=== PATIENT | female | born 1935 | race Caucasian/White ===

== ENCOUNTER → 2016-09-08 | Outpatient (CLI) | payer BC ==
[~2016-09-08] MED LIST: ACET-1487 PO; CALC-496 PO; CALC500C70 PO; CHLO12TA2; CLC100X PO; CLR10 PO; CYAN10004 PO; DILT180C PO; FLUT0.15 NAE; FSM70 PO; HYPO0.01 OPB; LEVO125T4 PO; MOUTLIQ83 PO; OXYB5TAB74 PO; SIMV-150 PO; WARF2TAB8 PO; WARF4TAB8 PO
[2016-09-08 16:17] LABS: BASO % 0.3 %; BASO ABS # 0.02 K/uL (0-0.2); COMPLETE YES; EOS % 1.5 %; HEMATOCRIT 42.2 % (37-47); IG% 0.2 %; LYMPH % 30.4 %; LYMPH ABS # 1.82 K/uL (1.2-3.4); MEAN CORPUSCULAR HEMOGLOBIN 30.8 pg (25-34); MEAN CORPUSCULAR HGB CONC 33.2 g/dl (32-36); MEAN PLATELET VOLUME 9.9 fL (7.4-10.4); MONO % 7.2 %; NEUT % 60.4 %; PLATELET COUNT 189 K/uL (130-400); RED BLOOD COUNT 4.54 M/uL (4.2-5.4); WHITE BLOOD COUNT 5.99 K/uL (4.8-10.8)
[2016-09-08 16:37] LABS: ALT/SGPT 13 U/L (12-78); BLOOD UREA NITROGEN 17 mg/dl (7-18); BUN/CREATININE RATIO 26.2 (10-20); CALCIUM 9.1 mg/dl (8.5-10.1); CARBON DIOXIDE 30 mmol/L (21-32); CHLORIDE 103 mmol/L (98-107); CHOLESTEROL 145 mg/dl (0-200); CREATININE 0.65 mg/dl (0.60-1.20); GLUCOSE 84 mg/dl (70-99); MAGNESIUM 2.1 mg/dl (1.8-2.4); POTASSIUM 3.8 mmol/L (3.5-5.1); SODIUM 142 mmol/L (136-145); TRIGLYCERIDES 108 mg/dl (0-150); VERY LOW DENSITY LIPOPROT CALC 22 mg/dl
[2016-09-08 16:47] LABS: ALB/GLOB RATIO 1.5 (0.9-2); ALKALINE PHOSPHATASE 61 U/L (45-117); AST/SGOT 11 U/L (15-37); CHOLESTEROL/HDL RATIO 2.8; HDL CHOLESTEROL 52 mg/dl; LDL CHOLESTEROL CALCULATED 71 mg/dl
== END | disposition home or self-care (01) ==
LOC: C.LAB 15:46
PROVIDERS: ATTEND Internal Medicine Geriatric Medicine
DX: I67.2 Cerebral atherosclerosis (principal); Z79.01 Long term (current) use of anticoagulants; G43.909 Migraine, unspecified, not intractable, without status migrainosus; I10 Essential (primary) hypertension; E83.42 Hypomagnesemia; E03.9 Hypothyroidism, unspecified; R41.3 Other amnesia; M81.0 Age-related osteoporosis without current pathological fracture; I48.0 Paroxysmal atrial fibrillation

== ENCOUNTER → 2017-03-21 | Outpatient (CLI) | payer BC ==
[~2017-03-21] MED LIST changes: -CALC-496 PO; -CHLO12TA2; -HYPO0.01 OPB
[2017-03-21 12:26] LABS: ESTIMATED AVERAGE GLUCOSE 103 mg/dl; HA1C FLAG Normal (Normal)
[2017-03-21 12:30] LABS: BLOOD UREA NITROGEN 16 mg/dl (7-18); BUN/CREATININE RATIO 23.5 (10-20); CARBON DIOXIDE 31 mmol/L (21-32); CHLORIDE 106 mmol/L (98-107); CREATININE 0.69 mg/dl (0.60-1.20); GLUCOSE 93 mg/dl (70-99); POTASSIUM 3.4 mmol/L (3.5-5.1); SODIUM 142 mmol/L (136-145)
[2017-03-21 15:43] LABS: URINE APPEARANCE CLOUDY (CLEAR); URINE BILIRUBIN NEG (NEG); URINE COLOR YELLOW; URINE NITRITE NEG (NEG); URINE SPECIFIC GRAVITY 1.015 (1.000-1.030); UROBILINOGEN NEG (NEG); ZZUR CULT IF INDIC CLEAN CATCH YES
[2017-03-21 15:47] LABS: MANUAL MICROSCOPIC REQUIRED? NO; REVIEW REQ? NO
--- NOTE | 2017-03-25 12:38 | CODING QUERY MEDICAL NECESSITY ---
CQSUPPORTING DIAGNOSIS NEEDED A supporting diagnosis is required for the test/procedure performed on this patient in order for us to be reimbursed by the patient's insurance. Please provide a supporting diagnosis for the following test/procedure listed below next to the test name along with your signature. *If there is no additional diagnosis for this patient that would support the following test/procedure please document that below next to the test/procedure. Test(s)/Procedure(s) that require a supporting diagnosis: SHEA 03/21/17 GLYCATED HEMOGLOBIN TEST Provider Signature: Date: Thank you Bee Diaz Health Information Management Once completed, please kindly fax back to [phone] For questions please call [phone]
== END | disposition home or self-care (01) ==
LOC: C.LAB 10:31
PROVIDERS: ATTEND Internal Medicine Geriatric Medicine
DX: G43.909 Migraine, unspecified, not intractable, without status migrainosus (principal); I10 Essential (primary) hypertension; R35.8 Other polyuria

== ENCOUNTER 2018-02-24 19:57 | Inpatient (IN) | payer BC, OTHER ==
[~2018-02-24] VITALS: Ht 162.6 cm; Wt 65.6 kg
[~2018-02-24 19:57] MED LIST changes: +CHOL1000 PO; -CLR10 PO; -FLUT0.15 NAE; +GABA-112 PO; -LEVO125T4 PO; -OXYB5TAB74 PO
[2018-02-24] MEDS ORDERED: LEVO125T5 PO (20:12)
[2018-02-24] MEDS ORDERED: METOCLOPRAMIDE HCL INJ 5 MG/ML 2 ML VIAL IV STA (20:23)
[2018-02-24] MEDS ORDERED: ACETAMINOPHEN 500 MG TAB PO STA (20:23)
[2018-02-24] MEDS ORDERED: SOAP SUDS ENEMA PR STA ×2 (20:23→23:25)
--- NOTE | 2018-02-24 20:25 | EMERGENCY ROOM VISIT NOTE ---
History Report prepared by Davina: Matthew Rosenbaum Under the Supervision of: Dr. Arturo Russo M.D. First contact with patient: 20:10 Chief Complaint: CONSTIPATION Stated Complaint: CONSTIPATION,NAUSEA,ABD PAIN AND CRAMPING History of Present Illness The patient is an 82 year old female who presents to the Emergency Room with complaints of persistent constipation that she has been experiencing for the past 2 days. The patient's daughter at bedside notes that she has not had a normal bowel movement in over two days. He notes that the did administer a "stool softener" earlier today which did loosen up some stool, but she still cannot pass a mass of stool. She is complaining of nausea as well. Source of History: patient Onset: 2 days ago Position: abdomen (cramping), other (rectal ) Quality: other (constipation) Timing: other (persistent) Associated Symptoms: + nausea, + abdominal pain Review of Systems See HPI for pertinent positives & negatives. A total of 10 systems reviewed and were otherwise negative. Past Medical & Surgical Medical Problems: (1) Fecal impaction (2) HYPERTENSION NOS (3) Replacement of total knee joint (4) Urinary incontinence Family History Omitted due to advanced age Social History Smoking Status: Former Smoker Marital Status: Housing Status: lives with family Occupation Status: retired Current/Historical Medications Scheduled Alendronate Sodium (Alendronate Sodium), 70 MG PO MONTHLY Calcium/Vitamin D (Os-Wilfredo 500 Plus D), 1 TAB PO DAILY Cholecalciferol (Vitamin D3), 1,000 INTER.UNIT PO DAILY Cyanocobalamin (Vitamin B-12 1000 Mcg), 1,000 MCG PO DAILY Diltiazem Hcl Coated Beads (Diltiazem Hcl Er), 180 MG PO DAILY Levothyroxine Sodium (Levothyroxine Sodium), 125 MCG PO DAILY Simvastatin (Simvastatin), 10 MG PO QAM Warfarin Sod (Jantoven), 2 MG PO 3XWK Warfarin Sod (Jantoven), 4 MG PO 4XWK Scheduled PRN Acetaminophen (Tylenol Arthritis Ext Rel), 650 MG PO Q8 PRN for Pain Docusate Sodium (Docusate Sodium), 100 MG PO DAILY PRN for Constipation Gabapentin (Neurontin), 100 MG PO DAILY PRN for Pain Allergies Coded Allergies: No Known Allergies (Unverified , 02/24/18) Physical Exam Vital Signs Date Time Temp Pulse Resp B/P (MAP) Pulse Ox O2 Delivery O2 Flow Rate FiO2 02/24/18 21:46 Room Air 02/24/18 21:46 101 24 226/140 98 Room Air 02/24/18 20:03 36.7 68 20 151/81 97 Room Air Physical Exam GENERAL: Awake, alert, well-appearing, in no acute distress HENT: Normocephalic, atraumatic. Oropharynx unremarkable. EYES: Normal conjunctiva. Sclera non-icteric. NECK: Supple. No nuchal rigidity. FROM. No JVD. RESPIRATORY: Clear to auscultation. CARDIAC: Regular rate, normal rhythm. Extremities warm and well perfused. Pulses equal. ABDOMEN: Soft, non-distended. No tenderness to palpation. No rebound or guarding. No masses. RECTAL: Deferred. MUSCULOSKELETAL: Chest examination reveals no tenderness. The back is symmetrical on inspection without obvious abnormality. There is no CVA tenderness to palpation. No joint edema. LOWER EXTREMITIES: Calves are equal size bilaterally and non-tender. No edema. No discoloration. NEURO: Normal sensorium. No sensory or motor deficits noted. SKIN: No rash or jaundice noted. RECTAL: There is a large amount of stool that was disimpacted by me. No blood. No masses palpated. Medical Decision & Procedures ER Provider Diagnostic Interpretation: Radiology results as stated below per my review and radiologist interpretation: CT ABDOMEN & PELVIS With Contrast: Fecal impaction in the rectum with perirectal fat stranding indication constipation. Areas of mild colonic wall thickening indicating mild colitis No small bowel obstruction Scattered small indeterminate cystic lesions in the liver. Radiologist: Gomez Aldana MD CT L SPINE: There is moderate loss of height at the L2 vertebral body without evidence for acute injury. Multilevel discogenic disease is noted. No acute fracture. CT HEAD: No acute fracture or hemorrhage Radiologist: Gomez Aldana MD Laboratory Results 02/24/18 20:17 Red Blood Count 4.93, Mean Corpuscular Volume 92.3, Mean Corpuscular Hemoglobin 31.2, Mean Corpuscular Hemoglobin Concent 33.8, Mean Platelet Volume 10.0, Neutrophils (%) (Auto) 85.4, Lymphocytes (%) (Auto) 8.8, Monocytes (%) (Auto) 5.4, Eosinophils (%) (Auto) 0.1, Basophils (%) (Auto) 0.1, Neutrophils # (Auto) 8.70, Lymphocytes # (Auto) 0.90, Monocytes # (Auto) 0.55, Eosinophils # (Auto) 0.01, Basophils # (Auto) 0.01 Test 02/24/18 20:17 White Blood Count 10.19 K/uL (4.8-10.8) Red Blood Count 4.93 M/uL (4.2-5.4) Hemoglobin 15.4 g/dL (12.0-16.0) Hematocrit 45.5 % (37-47) Mean Corpuscular Volume 92.3 fL (80-100) Mean Corpuscular Hemoglobin 31.2 pg (25-34) Mean Corpuscular Hemoglobin Concent 33.8 g/dl (32-36) Platelet Count 215 K/uL (130-400) Mean Platelet Volume 10.0 fL (7.4-10.4) Neutrophils (%) (Auto) 85.4 % Lymphocytes (%) (Auto) 8.8 % Monocytes (%) (Auto) 5.4 % Eosinophils (%) (Auto) 0.1 % Basophils (%) (Auto) 0.1 % Neutrophils # (Auto) 8.70 K/uL (1.4-6.5) Lymphocytes # (Auto) 0.90 K/uL (1.2-3.4) Monocytes # (Auto) 0.55 K/uL (0.11-0.59) Eosinophils # (Auto) 0.01 K/uL (0-0.5) Basophils # (Auto) 0.01 K/uL (0-0.2) RDW Standard Deviation 44.4 fL (36.4-46.3) RDW Coefficient of Variation 13.2 % (11.5-14.5) Immature Granulocyte % (Auto) 0.2 % Immature Granulocyte # (Auto) 0.02 K/uL (0.00-0.02) Total Bilirubin 0.6 mg/dl (0.2-1) Direct Bilirubin 0.2 mg/dl (0-0.2) Aspartate Amino Transf (AST/SGOT) 18 U/L (15-37) Alanine Aminotransferase (ALT/SGPT) 15 U/L (12-78) Alkaline Phosphatase 85 U/L (45-117) Total Creatine Kinase 111 U/L (26-192) Creatine Kinase MB 1.3 ng/ml (0.5-3.6) Creatine Kinase MB Ratio 1.2 (0-3.0) Troponin I < 0.015 ng/ml (0-0.045) Total Protein 7.5 gm/dl (6.4-8.2) Albumin 4.0 gm/dl (3.4-5.0) Thyroid Stimulating Hormone (TSH) 2.860 uIu/ml (0.300-4.500) Labs reviewed by ED physician. Medications Administered Medications (Trade) Dose Ordered Sig/Elise Route Start Time Stop Time Status Last Admin Dose Admin Miscellaneous (Soap Suds Enema) 1 ea NOW STAT AK 02/24/18 20:23 02/24/18 20:27 DC 02/24/18 20:23 1 EA Metoclopramide HCl (Reglan Inj) 10 mg NOW STAT IV 02/24/18 20:23 02/24/18 20:27 DC 02/24/18 20:49 10 MG Acetaminophen (Tylenol Tab) 1,000 mg NOW STAT PO 02/24/18 20:23 02/24/18 20:27 DC 02/24/18 20:51 1,000 MG Lidocaine (Lidoderm Patch 5%) 1 patch NOW STAT TD 02/24/18 20:38 02/24/18 20:39 DC 02/24/18 21:11 1 PATCH Potassium Chloride (Klor-Con Tab) 40 meq NOW STAT PO 02/24/18 21:46 02/24/18 21:47 DC 02/24/18 21:46 40 MEQ Potassium Chloride (Klor-Con Tab) 20 meq NOW STAT PO 02/24/18 23:22 02/24/18 23:23 DC 02/25/18 00:46 20 MEQ Morphine Sulfate (MoRPHine SULFATE INJ) 4 mg NOW STAT IV 02/24/18 23:34 02/24/18 23:35 DC 02/24/18 23:44 4 MG Ondansetron HCl (Zofran Inj) 4 mg NOW STAT IV 02/24/18 23:34 02/24/18 23:36 DC 02/24/18 23:44 4 MG Magnesium Citrate (Citrate Of Magnesia Soln) 148 ml NOW STAT PO 02/24/18 23:34 02/24/18 23:36 DC 02/25/18 00:45 148 ML Gabapentin (Neurontin Cap) 100 mg DAILY PRN PO 02/25/18 00:45 8 00:44 02/25/18 08:29 100 MG Lactated Ringer's 1,000 ml @ 80 mls/hr [id number] IV 02/25/18 00:45 02/26/18 01:44 02/25/18 13:24 80 MLS/HR Procedure DISIMPACTION There is a large amount of stool that was disimpacted by me. No blood. No masses palpated. ECG Per My Interpretation Indication: nausea Rate (beats per minute): 77 Rhythm: normal sinus Findings: RBBB, other (No BILLY/STD) ED Course 2012: Past medical records reviewed. The patient was evaluated in room C5. A complete history and physical examination was performed. 2100: I checked on the patient at this time. She is on the bedside commode. 2346: I discussed with [facility]ushil [facility]. She will evaluate the patient for further treatment. Medical Decision Differential diagnosis: Etiologies such as functional constipation, impaction, obstruction, volvulus, metabolic abnormality, infection, neurologic, as well as others were entertained. This is an 82-year-old female who presents the emergency department complaining of constipation. The patient was disimpacted by me twice. The patient was then given enemas here in the due to the vomiting and abdominal pain patient was sent for CAT scan of the abdomen and pelvis which showed a large stool impaction she was then again disimpacted by me. She was given Reglan as well as morphine for the pain. She was given magnesium Citrate that was discussed with the hospitalist service. Medication Reconcilliation Current Medication List: was personally reviewed by me Blood Pressure Screening Patient's blood pressure: Elevated blood pressure Referred to hospitalist. Consults Time Called: 2343 Consulting Physician: Dr. Sushil [facility]. Returned Call: [address] Sushil Swift. She will evaluate the patient for further treatment. Impression Primary Impression: Constipation Scribe Attestation The scribe's documentation has been prepared under my direction and personally reviewed by me in its entirety. I confirm that the note above accurately reflects all work, treatment, procedures, and medical decision making performed by me. Departure Information Dispostion Being Evaluated By Hospitalist Referrals Myron Martínez M.D. (PCP) Patient Instructions My [facility] Problem Qualifiers Primary Impression: Constipation Constipation type: unspecified constipation type Qualified Codes: K59.00 - Constipation, unspecified
[2018-02-24] MEDS ORDERED: LIDODERM (LIDOCAINE) PATCH 5% TD STA (20:38)
[2018-02-24 20:58] LABS: BASO % 0.1 %; BASO ABS # 0.01 K/uL (0-0.2); EOS % 0.1 %; EOS ABS # 0.01 K/uL (0-0.5); HEMATOCRIT 45.5 % (37-47); HEMOGLOBIN 15.4 g/dL (12.0-16.0); IG# 0.02 K/uL (0.00-0.02); LYMPH % 8.8 %; MEAN CELL VOLUME 92.3 fL (80-100); MEAN CORPUSCULAR HEMOGLOBIN 31.2 pg (25-34); MEAN CORPUSCULAR HGB CONC 33.8 g/dl (32-36); MONO % 5.4 %; MONO ABS # 0.55 K/uL (0.11-0.59); NEUT % 85.4 %; PLATELET COUNT 215 K/uL (130-400); RED CELL DISTRIBUTION WIDTH CV 13.2 % (11.5-14.5); RED CELL DISTRIBUTION WIDTH SD 44.4 fL (36.4-46.3); WHITE BLOOD COUNT 10.19 K/uL (4.8-10.8)
[2018-02-24] MEDS ORDERED: DOCU100C31 PO (21:10)
[2018-02-24 21:34] LABS: ALKALINE PHOSPHATASE 85 U/L (45-117); ALT/SGPT 15 U/L (12-78); AST/SGOT 18 U/L (15-37); BLOOD UREA NITROGEN 13 mg/dl (7-18); CALCIUM 8.5 mg/dl (8.5-10.1); CARBON DIOXIDE 27 mmol/L (21-32); CKMB 1.3 ng/ml (0.5-3.6); CREATININE 0.58 mg/dl (0.60-1.20); GLUCOSE 127 mg/dl (70-99); POTASSIUM 2.8 mmol/L (3.5-5.1); SODIUM 136 mmol/L (136-145); TOTAL PROTEIN 7.5 gm/dl (6.4-8.2)
[2018-02-24] MEDS ORDERED: POTASSIUM CHLORIDE 20 MEQ TABCR PO STA ×3 (21:46→23:22)
[2018-02-24] MEDS ORDERED: OPTIRAY 320 IV PRN (22:00)
[2018-02-24] MEDS ORDERED: POTASSIUM CHLORIDE 10 MEQ TABCR ONE ×2 (22:16→22:22)
[2018-02-24] MEDS ORDERED: MoRPHine SULFATE 4 MG/ML 1 ML CARP\\VIAL IV STA (23:34)
[2018-02-24] MEDS ORDERED: ONDANSETRON INJ 2 MG/ML 2 ML VIAL IV STA (23:34)
[2018-02-24] MEDS ORDERED: MAGNESIUM CITRATE 296 ML/BTL PO STA (23:34)
[2018-02-25] MEDS ORDERED: POTASSIUM CHLORIDE 10 MEQ TABCR ONE (00:44)
[2018-02-25] MEDS ORDERED: BISACODYL 10 MG SUPP PR PRN (00:45)
[2018-02-25] MEDS ORDERED: POLYETHYLENE (MIRALAX) 17 GM PACK PO PRN (00:45)
[2018-02-25] MEDS ORDERED: MAGNESIUM CITRATE 296 ML/BTL PO PRN (00:45)
--- NOTE | 2018-02-25 01:04 | History and Physical ---
History & Physical Date & Time of Service: Feb 25, 2018 at 00:49 Chief Complaint: Constipation,Nausea,Abd Pain And Cramping Primary Care Physician: Myron Martínez M.D. History of Present Illness Source: patient, family Mrs. Harris is an 82yo female presenting with at least 2 days of constipation, no BM as well as progressive abdominal pain and cramping, nausea and decreased po intake. Daughter also reports she is mildly confused. CT abdomen performed from the ER which confirmed fecal impaction s/p manual disimpaction x 2 by ER physician. Patient still complaining of abdominal pain and cramping. ER Course: Morphine 4mg, Zofran 4mg, Magnesium Citrate, Soap suds enema, KCL 60meq, Lidocaine TD, Reglan, Tylenol Past Medical/Surgical History Medical Problems: Atrial fibrillation Constipation Hypertension Hypothyroidism Chronic rhinitis Past Surgical History: TKA x 2 Cataract x 2 Right arm fracture Tonsillectomy Appendectomy Family History Omitted due to advanced age Social History Smoking Status: Former Smoker Smokeless Tobacco Use: No Alcohol Use: none Drug Use: none Marital Status: Housing status: lives with family Occupational Status: retired Immunizations History of Influenza Vaccine: Yes History of Tetanus Vaccine?: Yes History of Pneumococcal: Yes History of Hepatitis B Vaccine: No Allergies Coded Allergies: No Known Allergies (Unverified , 02/24/18) Home Medications Scheduled Alendronate Sodium (Alendronate Sodium), 70 MG PO MONTHLY Calcium/Vitamin D (Os-Wilfredo 500 Plus D), 1 TAB PO DAILY Cholecalciferol (Vitamin D3), 1,000 INTER.UNIT PO DAILY Cyanocobalamin (Vitamin B-12 1000 Mcg), 1,000 MCG PO DAILY Diltiazem Hcl Coated Beads (Diltiazem Hcl Er), 180 MG PO DAILY Levothyroxine Sodium (Levothyroxine Sodium), 125 MCG PO DAILY Simvastatin (Simvastatin), 10 MG PO QAM Warfarin Sod (Jantoven), 2 MG PO 3XWK Warfarin Sod (Jantoven), 4 MG PO 4XWK Scheduled PRN Acetaminophen (Tylenol Arthritis Ext Rel), 650 MG PO Q8 PRN for Pain Docusate Sodium (Docusate Sodium), 100 MG PO DAILY PRN for Constipation Gabapentin (Neurontin), 100 MG PO DAILY PRN for Pain Review of Systems Constitutional: No fever, No chills Eyes: No worsening of vision ENT: No hearing loss Respiratory: No cough Cardiovascular: No chest pain Abdomen: + pain, + nausea, + constipation, No vomiting, No diarrhea Musculoskeletal: No joint pain Genitourinary - Female: No dysuria, No urinary frequency Neurologic: No weakness Endocrine: No fatigue Hematologic / Lymphatic: No abnormal bleeding/bruising Integumentary: No rash Physical Exam Vital Signs Date Time Temp Pulse Resp B/P (MAP) Pulse Ox O2 Delivery O2 Flow Rate FiO2 02/24/18 21:46 Room Air 02/24/18 21:46 101 24 226/140 98 Room Air 02/24/18 20:03 36.7 68 20 151/81 97 Room Air General: patient resting comfortably in bed, hard of hearing Skin: warm, dry, intact, no rashes or lesions HEENT: NC/AT, PERRL, EOMI, anicteric sclera, conjunctiva without injection, nares patent, moist mucus membranes, no oropharyngeal lesions, neck supple, trachea midline, no thyromegaly, no LAD Heart: +S1/S2, irregularly irregular, no m/r/g Lungs: equal air entry bilaterally, no rales/rhonchi/wheezes Abdomen: soft, NT/ND, no organomegaly/ascites, fullness in left lower abdomen, mildly tender to palpation without rebound/guarding or peritoneal signs Extremities: warm, well perfused, no clubbing/cyanosis or edema, 2+ palpable pulses in UE/LE bilaterally Neuro: grossly intact Diagnostics Laboratory Results Results Past 24 Hours Test 02/24/18 20:17 02/25/18 00:40 Range/Units White Blood Count 10.19 4.8-10.8 K/uL Red Blood Count 4.93 4.2-5.4 M/uL Hemoglobin 15.4 12.0-16.0 g/dL Hematocrit 45.5 37-47 % Mean Corpuscular Volume 92.3 80-100 fL Mean Corpuscular Hemoglobin 31.2 25-34 pg Mean Corpuscular Hemoglobin Concent 33.8 32-36 g/dl Platelet Count 215 130-400 K/uL Mean Platelet Volume 10.0 7.4-10.4 fL Neutrophils (%) (Auto) 85.4 % Lymphocytes (%) (Auto) 8.8 % Monocytes (%) (Auto) 5.4 % Eosinophils (%) (Auto) 0.1 % Basophils (%) (Auto) 0.1 % Neutrophils # (Auto) 8.70 1.4-6.5 K/uL Lymphocytes # (Auto) 0.90 1.2-3.4 K/uL Monocytes # (Auto) 0.55 0.11-0.59 K/uL Eosinophils # (Auto) 0.01 0-0.5 K/uL Basophils # (Auto) 0.01 0-0.2 K/uL RDW Standard Deviation 44.4 36.4-46.3 fL RDW Coefficient of Variation 13.2 11.5-14.5 % Immature Granulocyte % (Auto) 0.2 % Immature Granulocyte # (Auto) 0.02 0.00-0.02 K/uL Sodium Level 136 136-145 mmol/L Potassium Level 2.8 3.5-5.1 mmol/L Chloride Level 99 98-107 mmol/L Carbon Dioxide Level 27 21-32 mmol/L Anion Gap 10.0 3-11 mmol/L Blood Urea Nitrogen 13 7-18 mg/dl Creatinine 0.58 0.60-1.20 mg/dl Est Creatinine Clear Calc Drug Dose 62.4 ml/min Estimated GFR () 98.1 Estimated GFR (Non- 84.6 BUN/Creatinine Ratio 22.9 10-20 Random Glucose 127 70-99 mg/dl Calcium Level 8.5 8.5-10.1 mg/dl Total Bilirubin 0.6 0.2-1 mg/dl Direct Bilirubin 0.2 0-0.2 mg/dl Aspartate Amino Transf (AST/SGOT) 18 15-37 U/L Alanine Aminotransferase (ALT/SGPT) 15 12-78 U/L Alkaline Phosphatase 85 45-117 U/L Total Creatine Kinase 111 26-192 U/L Creatine Kinase MB 1.3 0.5-3.6 ng/ml Creatine Kinase MB Ratio 1.2 0-3.0 Troponin I < 0.015 0-0.045 ng/ml Total Protein 7.5 6.4-8.2 gm/dl Albumin 4.0 3.4-5.0 gm/dl Thyroid Stimulating Hormone (TSH) 2.860 0.300-4.500 uIu/ml Diagnostic Radiology CT ABDOMEN PERFORMED - NEGATIVE FOR ACUTE INTRACRANIAL PROCESS CT LUMBAR SPINE - NEGATIVE FOR ACUTE FRACTURE, + DJD CT ABDOMEN - +FECAL IMPACTION WITH STRANDING, MILD COLITIS EKG ORDERED Impression Assessment and Plan 82yo female with fecal impaction 1. Fecal impaction/Constipation - s/p manual disimpaction x 2 in ER with minimal improvement. -Colace 100mg po BID -Dulcolax 10mg IA daily -Magnesium Citrate 75mL po BID -Miralax daily PRN -Optimize electrolytes and fluid balance -LR at 80mL/hr x 2 liters -Frequent ambulation as tolerated 2. Hypertension - elevated BP while in ER -Continue to monitor -Diltiazem 180mg po daily 3. Hyperlipidemia - stable -Continue Simvastatin 4. Hypothyroidism - stable -Continue Synthroid 5. Atrial fibrillation - rate controlled. On Coumadin anticoagulatin -Continue to monitor -Continue Coumadin at home dosage -Monitor INR 6. F/E/N - LR at 80mL/hr x 2 liters, monitor electrolytes and replete as needed , K supplemented in ER, repeat BMP in AM, regular diet as tolerated 7. Ppx - Patient on Coumadin for atrial fibrillation, continue 8. Code -Full per discussion with patient 9. Dispo - Observation to medical floor for continued optimization Resuscitation Status Full VTE Prophylaxis Will order VTE Prophylaxis: Yes
[2018-02-25 01:15] LABS: PHOSPHORUS 2.9 mg/dl (2.5-4.9)
[2018-02-25 01:23] LABS: INR 3.6 (0.9-1.1)
[2018-02-25 02:30] VITALS: BP 128/72; PULSE 76; TEMP 36.6; O2SAT 93; BMI 24.3
[2018-02-25] MEDS: LACTATED RINGER'S 1000ML 1,000 ML IV SCH ×2 (03:12→13:24)
[2018-02-25] MEDS ORDERED: IV FLUIDS COMPLETED PRN (04:45)
[2018-02-25] MEDS: LEVOTHYROXINE 125 MCG TAB PO SCH (05:44)
[2018-02-25 06:40] LABS: INR 4.2 (0.9-1.1)
--- NOTE | 2018-02-25 06:40 | DIAGNOSTIC IMAGING REPORT ---
HEAD WITHOUT CONTRAST (CT) CLINICAL HISTORY: 82 years-old Female with Pt multiple falls. Acute head trauma status post fall TECHNIQUE: Multiple axial CT images of the head were obtained without contrast. A dose lowering technique was utilized adhering to the principles of ALARA. CT DOSE: 1125.52 mGy.cm COMPARISON: CT head 03/22/2014. FINDINGS: No acute intracranial hemorrhage, midline shift, intracranial mass, hydrocephalus, territorial ischemia or abnormal extra-axial collection. Age-related involutional changes. Moderate to extensive patchy low-attenuation throughout the white matter suggests chronic microvascular ischemic changes. The calvarium is intact. Mild polypoid mucosal thickening of the left maxillary sinus. Mild mucosal thickening of the ethmoid air cells. Mastoid air cells and middle ear cavities appear clear. Soft tissues and orbits are within normal limits. IMPRESSION: No acute intracranial abnormality. The above report was generated using voice recognition software. It may contain grammatical, syntax or spelling errors. Electronically signed by: Mariano Amado M.D. 02/25/2018 6:38 AM Dictated Date/Time: 02/25/2018 6:36 AM
--- NOTE | 2018-02-25 07:13 | DIAGNOSTIC IMAGING REPORT ---
LUMBAR SPINE CT CT DOSE: HISTORY: Pt c/o low back pain TECHNIQUE: Multiaxial CT images of the lumbar spine were performed and reformatted in the sagittal and coronal plane without the use of contrast. A dose lowering technique was utilized adhering to the principles of ALARA. COMPARISON: Lumbar spine CT 03/22/2014. Lumbar spine radiograph 12/20/2014. FINDINGS: Moderate compression fracture at L2. This is likely old. Moderate to severe disc space narrowing at L5-S1. Mild to moderate facet degenerative changes throughout the lumbar spine. Small focal indentation along the right superior endplate of L3. This also likely represents an old compression fracture. Abnormal lucency with a small amount of gas along the inferior endplate of T12. This is consistent with an acute compression fracture. This demonstrate minimal loss of height. Minimal levoscoliosis. The visualized sacrum appears intact. Mild paravertebral edema at the T12 level. Small cysts within the right hepatic lobe. Hypodense lesions within the kidneys are noted. This is better appreciated on the same day abdomen and pelvis CT. Moderate disc space narrowing at L2-L3 and mild disc space narrowing at L1-L2 and L4-L5. IMPRESSION: 1. Acute inferior endplate compression fracture at T12. This demonstrates minimal loss of height. This finding was called/faxed to the emergency Department following dictation. 2. Old compression deformities at L2 and L3. Electronically signed by: Rafael Cool M.D. 02/25/2018 7:12 AM Dictated Date/Time: 02/25/2018 7:05 AM
[2018-02-25 07:14] VITALS: BP 105/57; PULSE 62; TEMP 36.3; O2SAT 99
[2018-02-25 07:15] VITALS: BP 138/70; PULSE 72; TEMP 36.4; O2SAT 94
--- NOTE | 2018-02-25 07:22 | DIAGNOSTIC IMAGING REPORT ---
ABD/PELVIS IV AND ORAL CONT CT DOSE: HISTORY: Pain Pt c/o stool impaction, abd pain TECHNIQUE: Multiaxial CT images of the abdomen and pelvis were performed following the use of intravenous and oral contrast. A dose lowering technique was utilized adhering to the principles of ALARA. COMPARISON STUDY: None. FINDINGS: Lung bases are clear. Several small hepatic cysts. Gallbladder is negative for distention. Kidneys negative for hydronephrosis. Bowel pattern is considered nonobstructive. There is moderate fecal colonic low-dose of the colon. There is a fecal impaction within the rectosigmoid. IMPRESSION: 1. Fecal impaction. 2. Otherwise no acute process in the abdomen or pelvis. The above report was generated using voice recognition software. It may contain grammatical, syntax or spelling errors. Electronically signed by: Conner Ramirez M.D. 02/25/2018 7:21 AM Dictated Date/Time: 02/25/2018 7:12 AM
[2018-02-25] MEDS: CALCIUM 600MG + VIT D 400 IU TAB PO SCH (08:28)
[2018-02-25] MEDS: DILTIAZEM HCL 180 MG CAPCR PO SCH (08:28)
[2018-02-25] MEDS: GABAPENTIN 100 MG CAP PO PRN (08:29)
[2018-02-25] MEDS: CHOLECALCIFEROL 1000 INTER.UNIT TAB PO SCH (08:29)
[2018-02-25] MEDS: DOCUSATE SODIUM 100 MG CAP PO SCH ×2 (08:29→20:48)
[2018-02-25] MEDS: CYANOCOBALAMIN 500 MCG TAB (VIT B-12) PO SCH (08:29)
[2018-02-25] MEDS: SIMVASTATIN 10 MG TAB PO SCH (08:29)
[2018-02-25 09:40] LABS: CALCIUM 8.7 mg/dl (8.5-10.1); CREATININE 0.57 mg/dl (0.60-1.20); PHOSPHORUS 3.5 mg/dl (2.5-4.9); POTASSIUM 3.4 mmol/L (3.5-5.1)
--- NOTE | 2018-02-25 13:10 | Progress Note ---
Subjective Date of Service: Feb 25, 2018. Subjective Pt evaluation today including: conversation w/ patient, conversation w/ family , physical exam, chart review, lab review, review of studies, conversation w/ retail sales vitamin consultant, review of inpatient medication list Report tired, however was eating some food, no abdominal pain, has 2 time bowel movement was normal soft stool, denied back pain, Problem List Medical Problems: (1) Constipation Status: Acute Review of Systems Constitutional: + weakness, + fatigue, No fever, No chills, No sweats, No weight loss, No problem reported Eyes: No worsening of vision, No eye pain, No redness, No discharge, No diplopia ENT: No hearing loss, No unusual epistaxis, No nasal symptoms, No sore throat, No tinnitus, No dental problems, No trouble swallowing Respiratory: No cough, No sputum, No wheezing, No shortness of breath, No dyspnea on exertion, No dyspnea at rest, No hemoptysis Cardiac: No chest pain, No orthopnea, No PND, No edema, No claudication, No palpitations Abdomen: No pain, No nausea, No vomiting, No diarrhea, No constipation Musculoskeletal: No joint pain, No muscle pain, No swelling, No calf pain Female : No dysuria, No urinary frequency, No hematuria, No incontinence, No abnormal vaginal bleeding, No vaginal discharge Neurologic: No memory loss, No paralysis, No weakness, No numbness/tingling, No vertigo, No balance problems Psychiatric: No depression symptoms, No anhedonism, No anxiety, No insomnia, No substance abuse Heme: No abnormal bleeding/bruising, No clotting problems, No swollen lymph nodes, No night sweats Endo: No fatigue, No excessive thirst, No excessive urination Skin: No rash, No itch, No new/changing skin lesions, No color change, No bleeding Objective Vital Signs Date Time Temp Pulse Resp B/P (MAP) Pulse Ox O2 Delivery O2 Flow Rate FiO2 02/25/18 08:00 Room Air 02/25/18 07:15 36.4 72 16 138/70 (92) 94 Room Air 02/25/18 02:30 36.6 76 16 128/72 93 Room Air 02/25/18 01:42 78 18 160/90 98 Room Air 02/25/18 01:16 72 02/24/18 21:46 Room Air 02/24/18 21:46 101 24 226/140 98 Room Air 02/24/18 20:03 36.7 68 20 151/81 97 Room Air Physical Exam General Appearance: WD/WN, no apparent distress, + pertinent finding (Looks tired) Eyes: normal inspection, PERRL, EOMI, sclerae normal ENT: normal ENT inspection, hearing grossly normal, pharynx normal Neck: supple, no adenopathy, thyroid normal, no JVD, no carotid bruits, trachea midline Respiratory/Chest: chest non-tender, normal breath sounds, no respiratory distress, no accessory muscle use, + decreased breath sounds Cardiovascular: regular rate, rhythm, no edema, no gallop, no JVD, no murmur Abdomen: normal bowel sounds, non tender, soft, no organomegaly, no pulsatile mass Extremities: normal range of motion, non-tender, normal inspection, no pedal edema, no calf tenderness, normal capillary refill, pelvis stable, + pertinent finding (T-spine and L-spine local has no tender) Neurologic/Psychiatric: 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 literacy instructor II-XII 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 as tested, no motor/sensory deficits, alert, normal mood/affect, oriented x 3 Skin: normal color, warm/dry, no rash Lymphatic: no adenopathy Laboratory Results Last 24 Hours Test 02/24/18 20:17 02/24/18 20:47 02/25/18 05:35 02/25/18 05:42 White Blood Count 10.19 K/uL Red Blood Count 4.93 M/uL Hemoglobin 15.4 g/dL Hematocrit 45.5 % Mean Corpuscular Volume 92.3 fL Mean Corpuscular Hemoglobin 31.2 pg Mean Corpuscular Hemoglobin Concent 33.8 g/dl Platelet Count 215 K/uL Mean Platelet Volume 10.0 fL Neutrophils (%) (Auto) 85.4 % Lymphocytes (%) (Auto) 8.8 % Monocytes (%) (Auto) 5.4 % Eosinophils (%) (Auto) 0.1 % Basophils (%) (Auto) 0.1 % Neutrophils # (Auto) 8.70 K/uL Lymphocytes # (Auto) 0.90 K/uL Monocytes # (Auto) 0.55 K/uL Eosinophils # (Auto) 0.01 K/uL Basophils # (Auto) 0.01 K/uL RDW Standard Deviation 44.4 fL RDW Coefficient of Variation 13.2 % Immature Granulocyte % (Auto) 0.2 % Immature Granulocyte # (Auto) 0.02 K/uL Sodium Level 136 mmol/L 139 mmol/L Potassium Level 2.8 mmol/L 3.4 mmol/L Chloride Level 99 mmol/L 102 mmol/L Carbon Dioxide Level 27 mmol/L 31 mmol/L Anion Gap 10.0 mmol/L 6.0 mmol/L Blood Urea Nitrogen 13 mg/dl 14 mg/dl Creatinine 0.58 mg/dl 0.57 mg/dl Est Creatinine Clear Calc Drug Dose 62.4 ml/min 63.5 ml/min Estimated GFR () 98.1 98.7 Estimated GFR (Non- 84.6 85.1 BUN/Creatinine Ratio 22.9 24.2 Random Glucose 127 mg/dl 122 mg/dl Calcium Level 8.5 mg/dl 8.7 mg/dl Phosphorus Level 2.9 mg/dl 3.5 mg/dl Magnesium Level 2.3 mg/dl 2.5 mg/dl Total Bilirubin 0.6 mg/dl Direct Bilirubin 0.2 mg/dl Aspartate Amino Transf (AST/SGOT) 18 U/L Alanine Aminotransferase (ALT/SGPT) 15 U/L Alkaline Phosphatase 85 U/L Total Creatine Kinase 111 U/L Creatine Kinase MB 1.3 ng/ml Creatine Kinase MB Ratio 1.2 Troponin I < 0.015 ng/ml Total Protein 7.5 gm/dl Albumin 4.0 gm/dl Thyroid Stimulating Hormone (TSH) 2.860 uIu/ml Prothrombin Time 37.2 SECONDS 43.0 SECONDS Prothromb Time International Ratio 3.6 4.2 Assessment and Plan 82yo female admitted on February 24, 2018 because of cramping abdominal pain with fecal impaction and mental status change Fecal impaction/Constipation upon admission s/p manual disimpaction x 2 in ER with minimal improvement. Resolved Continue Colace 100mg po BID, Dulcolax 10mg [place] daily, Magnesium Citrate 75mL po BID, Miralax daily PRN Mental status changes upon admission may be related to accelerated hypertension he was up to 225/140, resolved, head CT was checked was unremarkable Hypertension, dyslipidemia, hypothyroidism, stable continue continue current medication Atrial fibrillation - rate controlled. On Coumadin anticoagulatin, with a hyper therapeutic INR of 4.2, Coumadin on hold, monitor PT/INR tomorrow Hypokalemia potassium 2.8 upon admission, repeated potassium this morning was 3.4, replaced Acute inferior endplate compression fracture at T12. This demonstrates minimal loss of height. Old compression deformities at L2 and L3. Patient has no back pain, no local tender in palpation, will watch and check vitamin D level Discussed with patient's daughter in detail about patient condition and care plan, PT OT evaluation, alf or rehab if needed, patient is full code, Continued [facility] stay due to: multiple IV medications needed Discharge planning: home
[2018-02-25 14:58] VITALS: BP 158/70; PULSE 60; TEMP 36.6; O2SAT 95
[2018-02-25 16:00] VITALS: O2SAT 95
[2018-02-25] MEDS ORDERED: WARFARIN SOD 4 MG TAB PO SCH (16:00)
[2018-02-25] MEDS ORDERED: NURSING VERBAL MED ORDER ONE (22:45)
[2018-02-25 22:58] VITALS: BP 160/63; PULSE 68; TEMP 37.6; O2SAT 94
[2018-02-25] MEDS ORDERED: ACETAMINOPHEN 325 MG TAB PO ONE (23:15)
[2018-02-26 03:54] VITALS: BP 131/74; PULSE 59; TEMP 36.2; O2SAT 94
[2018-02-26] MEDS: LEVOTHYROXINE 125 MCG TAB PO SCH (05:54)
[2018-02-26 07:32] VITALS: BP 156/81; PULSE 64; TEMP 36.7; O2SAT 94
[2018-02-26 07:51] LABS: INR 2.9 (0.9-1.1)
[2018-02-26] MEDS: DOCUSATE SODIUM 100 MG CAP PO SCH ×2 (07:52→21:00)
[2018-02-26] MEDS: CHOLECALCIFEROL 1000 INTER.UNIT TAB PO SCH (07:52)
[2018-02-26] MEDS: CALCIUM 600MG + VIT D 400 IU TAB PO SCH (07:53)
[2018-02-26] MEDS: DILTIAZEM HCL 180 MG CAPCR PO SCH (07:53)
[2018-02-26] MEDS: SIMVASTATIN 10 MG TAB PO SCH (07:54)
[2018-02-26] MEDS: CYANOCOBALAMIN 500 MCG TAB (VIT B-12) PO SCH (07:54)
[2018-02-26 08:22] LABS: CALCIUM 8.3 mg/dl (8.5-10.1); CREATININE 0.49 mg/dl (0.60-1.20); PHOSPHORUS 2.8 mg/dl (2.5-4.9); POTASSIUM 3.7 mmol/L (3.5-5.1)
[2018-02-26 13:00] VITALS: Ht 162.6 cm; Wt 65.6 kg
[2018-02-26] MEDS: GABAPENTIN 100 MG CAP PO PRN (13:02)
[2018-02-26 15:21] VITALS: BP 138/79; PULSE 62; TEMP 36.5; O2SAT 95
[2018-02-26] MEDS ORDERED: WARFARIN SOD 2 MG TAB PO SCH (16:00)
--- NOTE | 2018-02-26 16:11 | Progress Note ---
Subjective Date of Service: Feb 26, 2018. Subjective Pt evaluation today including: conversation w/ patient, conversation w/ family , physical exam, chart review, lab review, review of studies, conversation w/ integrity consultant, review of inpatient medication list Patient's daughter reported patient is somehow confused, slow response, somehow mean to people, which is new, patient reported fatigue, diarrhea, and back pain Problem List Medical Problems: (1) Constipation Status: Acute Review of Systems Constitutional: + weakness, + fatigue, No fever, No chills, No sweats, No weight loss, No problem reported Eyes: No worsening of vision, No eye pain, No redness, No discharge, No diplopia ENT: No hearing loss, No unusual epistaxis, No nasal symptoms, No sore throat, No tinnitus, No dental problems, No trouble swallowing Respiratory: No cough, No sputum, No wheezing, No shortness of breath, No dyspnea on exertion, No dyspnea at rest, No hemoptysis Cardiac: No chest pain, No orthopnea, No PND, No edema, No claudication, No palpitations Abdomen: + diarrhea, No pain, No nausea, No vomiting, No constipation Musculoskeletal: + joint pain, No muscle pain, No swelling, No calf pain Female : No dysuria, No urinary frequency, No hematuria, No incontinence, No abnormal vaginal bleeding, No vaginal discharge Neurologic: No memory loss, No paralysis, No weakness, No numbness/tingling, No vertigo, No balance problems Psychiatric: No depression symptoms, No anhedonism, No anxiety, No insomnia, No substance abuse Heme: No abnormal bleeding/bruising, No clotting problems, No swollen lymph nodes, No night sweats Endo: No fatigue, No excessive thirst, No excessive urination Skin: No rash, No itch, No new/changing skin lesions, No color change, No bleeding Objective Vital Signs Date Time Temp Pulse Resp B/P (MAP) Pulse Ox O2 Delivery O2 Flow Rate FiO2 02/26/18 15:21 36.5 62 18 138/79 (98) 95 Room Air 02/26/18 08:00 Room Air 02/26/18 07:32 36.7 64 17 156/81 (106) 94 Room Air 02/26/18 03:54 36.2 59 18 131/74 (93) 94 Room Air 02/26/18 00:30 Room Air 02/25/18 22:58 37.6 68 20 160/63 (95) 94 Room Air Physical Exam General Appearance: WD/WN, no apparent distress, + pertinent finding (Mild confused,) Eyes: normal inspection, PERRL, EOMI, sclerae normal ENT: normal ENT inspection, hearing grossly normal, pharynx normal Neck: supple, no adenopathy, thyroid normal, no JVD, no carotid bruits, trachea midline Respiratory/Chest: chest non-tender, normal breath sounds, no respiratory distress, no accessory muscle use, + decreased breath sounds Cardiovascular: regular rate, rhythm, no edema, no gallop, no JVD, no murmur Abdomen: normal bowel sounds, non tender, soft, no organomegaly, no pulsatile mass Extremities: normal range of motion, non-tender, normal inspection, no pedal edema, no calf tenderness, normal capillary refill, pelvis stable, + pertinent finding (Lower T-spine has obvious tenderness when I palpation) Neurologic/Psychiatric: applications consultant II-XII nml as tested, no motor/sensory deficits, alert, normal mood/affect, oriented x 3, + abnormal cerebellar tests Skin: normal color, warm/dry, no rash Lymphatic: no adenopathy Laboratory Results Last 24 Hours Test 02/26/18 07:12 Prothrombin Time 30.1 SECONDS Prothromb Time International Ratio 2.9 Sodium Level 141 mmol/L Potassium Level 3.7 mmol/L Chloride Level 104 mmol/L Carbon Dioxide Level 31 mmol/L Anion Gap 6.0 mmol/L Blood Urea Nitrogen 11 mg/dl Creatinine 0.49 mg/dl Est Creatinine Clear Calc Drug Dose 73.8 ml/min Estimated GFR () 103.7 Estimated GFR (Non- 89.5 BUN/Creatinine Ratio 23.3 Random Glucose 90 mg/dl Calcium Level 8.3 mg/dl Phosphorus Level 2.8 mg/dl Magnesium Level 2.4 mg/dl Assessment and Plan 82yo female admitted on February 24, 2018 because of cramping abdominal pain with fecal impaction and mental status change Fecal impaction/Constipation upon admission s/p manual disimpaction x 2 in ER with minimal improvement. Resolved, and now has diarrhea, Will change stool softener such Colace 100mg po BID as needed, Dulcolax 10mg [place] daily as needed, Magnesium Citrate 75mL po BID as needed, Miralax daily PRN Mental status changes upon admission Now again has some confusion, may be related to accelerated hypertension he was up to 225/140, upon admission resolved, head CT was checked was unremarkable Accelerated hypertension, improved dyslipidemia, hypothyroidism, stable continue continue current medication Atrial fibrillation - rate controlled. On Coumadin anticoagulatin, with a hyper therapeutic INR of 4.2, Coumadin on hold, today's INR is 2.9, continue monitor PT/INR tomorrow Hypokalemia potassium 2.8 upon admission, potassium is normal today Acute inferior endplate compression fracture at T12. This demonstrates minimal loss of height. Old compression deformities at L2 and L3. checked vitamin D level, which is normal, continue supplementation of calcium and vitamin D Pain control by local lidocaine patch PTOT Discussed with patient's daughter in detail about patient condition and care plan, PT OT evaluation, residential or rehab if needed, patient is full code, We will changed for admission if patient can, she was having possible hypertension emergency with significant related to blood pressure and mental status changes possible was having severe hypertension caused mental status change upon admission Continued [facility] stay due to: multiple IV medications needed Discharge planning: home
--- NOTE | 2018-02-26 19:22 | DIAGNOSTIC IMAGING REPORT ---
BRAIN WITHOUT CONTRAST HISTORY: Mental status change age related cognitive decline, falls TECHNIQUE: Multiplanar multisequence MRI of the brain was performed without the use of contrast. COMPARISON STUDY: 10/03/2012 FINDINGS: Diffusion-weighted images are considered negative for an acute ischemic insult. There are findings of mild to moderate chronic small vessel change of aging. Mild age-appropriate atrophy. Ventricular system is midline. Sella and parasellar regions are unremarkable. IMPRESSION: 1. No acute ischemic abnormality. 2. Mild atrophy with moderate chronic small vessel change considered chronic. 3. No acute process. The above report was generated using voice recognition software. It may contain grammatical, syntax or spelling errors. Electronically signed by: Conner Ramirez M.D. 02/26/2018 7:20 PM Dictated Date/Time: 02/26/2018 7:18 PM
[2018-02-26 21:32] VITALS: BP 181/89; PULSE 68; TEMP 37.2; O2SAT 95
[2018-02-26 23:03] VITALS: BP 188/77; PULSE 66; TEMP 36.9; O2SAT 94
[2018-02-27] VITALS (7 sets, daily range): BP systolic 103–212; BP diastolic 64–95; PULSE 60–69; TEMP 36.7–37.1; O2SAT 93–95
[2018-02-27] MEDS ORDERED: NURSING VERBAL MED ORDER ONE
[2018-02-27] MEDS ORDERED: ACETAMINOPHEN 500 MG TAB ONE (00:47)
[2018-02-27] MEDS: ACETAMINOPHEN 500 MG TAB PO PRN ×2 (00:49→11:00)
[2018-02-27] MEDS: DILTIAZEM HCL 180 MG CAPCR PO SCH (04:33)
[2018-02-27 05:12] LABS: BASO % 0.1 %; BASO ABS # 0.01 K/uL (0-0.2); EOS % 1.1 %; EOS ABS # 0.08 K/uL (0-0.5); HEMATOCRIT 40.3 % (37-47); HEMOGLOBIN 13.2 g/dL (12.0-16.0); IG# 0.01 K/uL (0.00-0.02); LYMPH ABS # 1.97 K/uL (1.2-3.4); MEAN CELL VOLUME 93.9 fL (80-100); MEAN CORPUSCULAR HEMOGLOBIN 30.8 pg (25-34); MEAN PLATELET VOLUME 10.1 fL (7.4-10.4); MONO % 7.8 %; MONO ABS # 0.55 K/uL (0.11-0.59); NEUT % 62.9 %; NEUT ABS # 4.42 K/uL (1.4-6.5); PLATELET COUNT 206 K/uL (130-400); RED CELL DISTRIBUTION WIDTH CV 13.4 % (11.5-14.5); RED CELL DISTRIBUTION WIDTH SD 45.8 fL (36.4-46.3); WHITE BLOOD COUNT 7.04 K/uL (4.8-10.8)
[2018-02-27 05:21] LABS: INR 1.5 (0.9-1.1)
[2018-02-27 05:59] LABS: MEAN CORPUSCULAR HGB CONC 32.8 g/dl (32-36)
[2018-02-27] MEDS: LEVOTHYROXINE 125 MCG TAB PO SCH (06:41)
[2018-02-27 06:44] LABS: CALCIUM 8.3 mg/dl (8.5-10.1); CREATININE 0.45 mg/dl (0.60-1.20); POTASSIUM 3.4 mmol/L (3.5-5.1)
[2018-02-27] MEDS ORDERED: HydrALAZINE HCL 20 MG/ML VIAL IV. STA (07:11)
[2018-02-27] MEDS ORDERED: POTASSIUM CHLORIDE 20 MEQ TABCR PO STA (07:14)
[2018-02-27] MEDS ORDERED: LISINOPRIL 5 MG TAB PO ONE (07:15)
[2018-02-27] MEDS: CHOLECALCIFEROL 1000 INTER.UNIT TAB PO SCH (07:47)
[2018-02-27] MEDS: CALCIUM 600MG + VIT D 400 IU TAB PO SCH (07:47)
[2018-02-27] MEDS: CYANOCOBALAMIN 500 MCG TAB (VIT B-12) PO SCH (07:48)
[2018-02-27] MEDS: SIMVASTATIN 10 MG TAB PO SCH (07:48)
[2018-02-27] MEDS: DOCUSATE SODIUM 100 MG CAP PO SCH ×2 (07:49→20:42)
--- NOTE | 2018-02-27 08:03 | Clinical Documentation Query ---
CLINICAL DOCUMENTATION QUERY 82 yo female admitted with fecal impaction has reported altered mental status and confusion possibly related to accelerated hypertension. In your clinical opinion is this patient being managed for: ( x) Encephalopathy ( ) Not Agree ( ) Other explanation of clinical findings (No explanation is considered a No Response) ( ) Unable to determine ( ) Need to Discuss (Phone CDS or qliq) (No discussion is considered a No Response) The medical record reflects the following clinical findings, treatment, and risk factors. Clinical Indicators: As above Treatment: Lisinopril, Hydralazine PO, vital signs, I&O Risk Factors: Age, HTN, Please clarify and document your clinical opinion in the progress notes and discharge summary. Terms such as "probable", "suspected", "likely", "questionable", "possible", or "still to be ruled out" are acceptable. IF IN AGREEMENT, YOU MUST DOCUMENT ABOVE DIAGNOSTIC STATEMENT IN DAILY PROGRESS NOTES AND DISCHARGE SUMMARY. This document is not part of the patient's record. Thank You, Tyesha Ryan RN, MSN [phone]
[2018-02-27] MEDS ORDERED: ONDANSETRON INJ 2 MG/ML 2 ML VIAL IV STA (10:31)
[2018-02-27] MEDS ORDERED: ONDANSETRON INJ 2 MG/ML 2 ML VIAL IV PRN (10:45)
[2018-02-27] MEDS ORDERED: PANTOprazole INJ 40 MG in SYRINGE 0 ML IV ONE (10:45)
[2018-02-27] MEDS: GABAPENTIN 100 MG CAP PO PRN (11:00)
[2018-02-27] MEDS: SODIUM CHLORIDE 0.9% 1000ML 1,000 ML IV SCH ×2 (11:02→23:40)
[2018-02-27] MEDS ORDERED: CEFTRIAXONE SOD INJ 1 GM in DEXTROSE 5% ADD-VANTAGE 50ML 50 ML IV STA (15:13)
--- NOTE | 2018-02-27 15:15 | Progress Note ---
Subjective Date of Service: Feb 27, 2018. Subjective Pt evaluation today including: conversation w/ patient, conversation w/ family , physical exam, chart review, lab review, review of studies, conversation w/ production support consultant, review of inpatient medication list Voiding: lagunas catheter in place Was having confused and urinary retention last night, try 2 time straight cath was not successful, Lag[place] catheter placed this morning, UA social possible UTI Was uncomfortable confused this morning, this afternoon looks better after lunch , Refused the patient now she was comfortable in resting, Problem List Medical Problems: (1) Constipation Status: Acute Review of Systems Constitutional: + weakness, + fatigue Eyes: No worsening of vision, No eye pain, No redness, No discharge, No diplopia ENT: No hearing loss, No unusual epistaxis, No nasal symptoms, No sore throat, No tinnitus, No dental problems, No trouble swallowing Respiratory: No cough, No sputum, No wheezing, No shortness of breath, No dyspnea on exertion, No dyspnea at rest, No hemoptysis Cardiac: No chest pain, No orthopnea, No PND, No edema, No claudication, No palpitations Abdomen: + diarrhea (1 time), No pain, No nausea, No vomiting, No constipation Musculoskeletal: No joint pain, No muscle pain, No swelling, No calf pain Female : + incontinence, No dysuria, No urinary frequency, No hematuria, No abnormal vaginal bleeding, No vaginal discharge Neurologic: + problem reported (Anxious and confused), No memory loss, No paralysis, No weakness, No numbness/tingling, No vertigo, No balance problems Psychiatric: No depression symptoms, No anhedonism, No anxiety, No insomnia, No substance abuse Heme: No abnormal bleeding/bruising, No clotting problems, No swollen lymph nodes, No night sweats Endo: No fatigue, No excessive thirst, No excessive urination Skin: No rash, No itch, No new/changing skin lesions, No color change, No bleeding Objective Vital Signs Date Time Temp Pulse Resp B/P (MAP) Pulse Ox O2 Delivery O2 Flow Rate FiO2 02/27/18 11:51 36.7 69 16 132/64 (86) 93 Room Air 02/27/18 09:55 145/78 (100) 144/72 (96) 02/27/18 08:05 63 103/64 (77) 02/27/18 08:00 Room Air 02/27/18 07:13 36.8 60 20 203/64 (110) 95 Room Air 209/82 (124) 212/95 (134) 02/27/18 06:33 185/79 (114) 02/27/18 04:42 37.1 65 18 201/79 (119) 95 Room Air 02/26/18 23:03 36.9 66 18 188/77 (114) 94 Room Air 02/26/18 21:32 37.2 68 18 181/89 (119) 95 Room Air 02/26/18 20:30 Room Air 02/26/18 15:21 36.5 62 18 138/79 (98) 95 Room Air Physical Exam General Appearance: WD/WN, no apparent distress, + pertinent finding ( Interesting, was somewhat anxious and confused) Eyes: normal inspection, PERRL, EOMI, sclerae normal ENT: normal ENT inspection, hearing grossly normal, pharynx normal Neck: supple, no adenopathy, thyroid normal, no JVD, no carotid bruits, trachea midline Respiratory/Chest: chest non-tender, normal breath sounds, no respiratory distress, no accessory muscle use, + decreased breath sounds Cardiovascular: regular rate, rhythm, no edema, no gallop, no JVD, no murmur Abdomen: normal bowel sounds, non tender, soft, no organomegaly, no pulsatile mass Extremities: normal range of motion, non-tender, normal inspection, no pedal edema, no calf tenderness, normal capillary refill, pelvis stable Neurologic/Psychiatric: mud mixer II-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 as tested, no motor/sensory deficits, alert, normal mood/affect, oriented x 3 Skin: normal color, warm/dry, no rash Lymphatic: no adenopathy Laboratory Results Last 24 Hours Test 02/27/18 04:41 02/27/18 10:55 White Blood Count 7.04 K/uL Red Blood Count 4.29 M/uL Hemoglobin 13.2 g/dL Hematocrit 40.3 % Mean Corpuscular Volume 93.9 fL Mean Corpuscular Hemoglobin 30.8 pg Mean Corpuscular Hemoglobin Concent 32.8 g/dl Platelet Count 206 K/uL Mean Platelet Volume 10.1 fL Neutrophils (%) (Auto) 62.9 % Lymphocytes (%) (Auto) 28.0 % Monocytes (%) (Auto) 7.8 % Eosinophils (%) (Auto) 1.1 % Basophils (%) (Auto) 0.1 % Neutrophils # (Auto) 4.42 K/uL Lymphocytes # (Auto) 1.97 K/uL Monocytes # (Auto) 0.55 K/uL Eosinophils # (Auto) 0.08 K/uL Basophils # (Auto) 0.01 K/uL RDW Standard Deviation 45.8 fL RDW Coefficient of Variation 13.4 % Immature Granulocyte % (Auto) 0.1 % Immature Granulocyte # (Auto) 0.01 K/uL Prothrombin Time 15.5 SECONDS Prothromb Time International Ratio 1.5 Sodium Level 141 mmol/L Potassium Level 3.4 mmol/L Chloride Level 104 mmol/L Carbon Dioxide Level 31 mmol/L Anion Gap 5.0 mmol/L Blood Urea Nitrogen 9 mg/dl Creatinine 0.45 mg/dl Est Creatinine Clear Calc Drug Dose 80.4 ml/min Estimated GFR () 106.6 Estimated GFR (Non- 92.0 BUN/Creatinine Ratio 20.1 Random Glucose 95 mg/dl Calcium Level 8.3 mg/dl Urine Color YELLOW Urine Appearance CLEAR Urine pH >= 9.0 Urine Specific [place] 1.011 Urine Protein 1+ Urine Glucose (UA) NEG Urine Ketones NEG Urine Occult Blood NEG Urine Nitrite NEG Urine Bilirubin NEG Urine Urobilinogen NEG Urine Leukocyte Esterase MODERATE Urine WBC (Auto) >30 /hpf Urine RBC (Auto) 0-4 /hpf Urine Hyaline Casts (Auto) 5-10 /lpf Urine Epithelial Cells (Auto) 0-5 /lpf Urine Bacteria (Auto) NEG Assessment and Plan 82yo female admitted on February 24, 2018 because of cramping abdominal pain with fecal impaction and mental status change Fecal impaction/Constipation upon admission , resolved s/p manual disimpaction x 2 in ER with minimal improvement. Will change stool softener such Colace 100mg po BID as needed, Dulcolax 10mg [place] daily as needed, Magnesium Citrate 75mL po BID as needed, Miralax daily PRN Accelerated hypertension, add lisinopril 5 mg p.o. daily Possible UTI start Rocephin Mental status changes upon admission may be related to accelerated hypertension he was up to 225/140 upon admission resolved and UTI head CT was checked was unremarkable Atrial fibrillation - rate controlled. Was on Coumadin anticoagulatin, Today INR is 1.5, will resume Coumadin lower dose 2 mg p.o. daily Hypokalemia potassium 2.8 upon admission, today's 3.4, replaced Acute inferior endplate compression fracture at T12. This demonstrates minimal loss of height. Old compression deformities at L2 and L3. checked vitamin D level, which is normal, continue supplementation of calcium and vitamin D Pain control by local lidocaine patch Discussed with patient's daughter in detail about patient condition and care plan, PT OT evaluation, custodial or rehab if needed, patient is full code, possible need rehab before discharge to home Continued [facility] stay due to: multiple IV medications needed Discharge planning: home
[2018-02-27] MEDS: WARFARIN SOD 2 MG TAB PO SCH (15:52)
[2018-02-28] VITALS (7 sets, daily range): BP systolic 123–203; BP diastolic 68–88; PULSE 63–86; TEMP 36.6–37; O2SAT 93–97
[2018-02-28 05:58] LABS: INR 1.2 (0.9-1.1)
[2018-02-28] MEDS: LEVOTHYROXINE 125 MCG TAB PO SCH (06:10)
[2018-02-28] MEDS: HydrALAZINE HCL 20 MG/ML VIAL IV. PRN (07:37)
[2018-02-28] MEDS: DOCUSATE SODIUM 100 MG CAP PO SCH ×2 (07:38→20:06)
[2018-02-28] MEDS: SIMVASTATIN 10 MG TAB PO SCH (07:39)
[2018-02-28] MEDS: CALCIUM 600MG + VIT D 400 IU TAB PO SCH (07:39)
[2018-02-28] MEDS: CYANOCOBALAMIN 500 MCG TAB (VIT B-12) PO SCH (07:39)
[2018-02-28] MEDS: CHOLECALCIFEROL 1000 INTER.UNIT TAB PO SCH (07:39)
[2018-02-28] MEDS: DILTIAZEM HCL 180 MG CAPCR PO SCH (07:40)
[2018-02-28] MEDS ORDERED: WARFARIN SOD 1 MG TAB PO ONE (08:15)
[2018-02-28] MEDS ORDERED: LISINOPRIL 5 MG TAB PO SCH (09:00)
[2018-02-28] MEDS ORDERED: NURSING VERBAL MED ORDER ONE (11:30)
[2018-02-28] MEDS: PANTOprazole INJ 40 MG in SYRINGE 0 ML IV SCH (11:31)
[2018-02-28] MEDS ORDERED: CEFTRIAXONE SOD INJ 1 GM in DEXTROSE 5% ADD-VANTAGE 50ML 50 ML IV SCH (16:00)
[2018-02-28] MEDS: WARFARIN SOD 2 MG TAB PO SCH (16:23)
[2018-02-28] MEDS ORDERED: HYDROCODONE/ACETAMIN 5/325MG TAB PO PRN ×2 (16:45)
--- NOTE | 2018-02-28 16:50 | Progress Note ---
Subjective Date of Service: Feb 28, 2018. Subjective Pt evaluation today including: conversation w/ patient, conversation w/ family , physical exam, chart review, lab review, review of studies, review of inpatient medication list Still lethargic, and accelerated hypertension, however generally looks better, awakable, , smiling, conversational, eating meal Problem List Medical Problems: (1) Constipation Status: Acute Review of Systems Constitutional: + fatigue, No fever, No chills, No sweats, No weight loss, No weakness, No problem reported Eyes: No worsening of vision, No eye pain, No redness, No discharge, No diplopia ENT: No hearing loss, No unusual epistaxis, No nasal symptoms, No sore throat, No tinnitus, No dental problems, No trouble swallowing Respiratory: No cough, No sputum, No wheezing, No shortness of breath, No dyspnea on exertion, No dyspnea at rest, No hemoptysis Cardiac: No chest pain, No orthopnea, No PND, No edema, No claudication, No palpitations Abdomen: No pain, No nausea, No vomiting, No diarrhea, No constipation Musculoskeletal: + joint pain, No muscle pain, No swelling, No calf pain Female : No dysuria, No urinary frequency, No hematuria, No incontinence, No abnormal vaginal bleeding, No vaginal discharge Neurologic: No memory loss, No paralysis, No weakness, No numbness/tingling, No vertigo, No balance problems Psychiatric: No depression symptoms, No anhedonism, No anxiety, No insomnia, No substance abuse Heme: No abnormal bleeding/bruising, No clotting problems, No swollen lymph nodes, No night sweats Endo: No fatigue, No excessive thirst, No excessive urination Skin: No rash, No itch, No new/changing skin lesions, No color change, No bleeding Objective Vital Signs Date Time Temp Pulse Resp B/P (MAP) Pulse Ox O2 Delivery O2 Flow Rate FiO2 02/28/18 15:45 37.0 80 18 149/70 (96) 93 Room Air 02/28/18 08:20 86 126/68 (87) 02/28/18 08:00 97 Room Air 02/28/18 07:23 36.9 71 18 170/81 (110) 94 197/76 (116) 203/80 (121) 02/28/18 04:44 36.6 65 18 123/69 (87) 96 Room Air 02/28/18 00:11 36.8 63 19 144/88 (106) 94 Room Air 02/27/18 20:30 Room Air Physical Exam General Appearance: WD/WN, no apparent distress, + pertinent finding (Mild lethargic tired) Eyes: normal inspection, PERRL, EOMI, sclerae normal ENT: normal ENT inspection, hearing grossly normal, pharynx normal Neck: supple, no adenopathy, thyroid normal, no JVD, no carotid bruits, trachea midline Respiratory/Chest: chest non-tender, normal breath sounds, no respiratory distress, no accessory muscle use, + decreased breath sounds Cardiovascular: regular rate, rhythm, no edema, no gallop, no JVD, no murmur Abdomen: normal bowel sounds, non tender, soft, no organomegaly, no pulsatile mass Extremities: normal range of motion, non-tender, normal inspection, no pedal edema, no calf tenderness, normal capillary refill, pelvis stable, + pertinent finding (Lower T-spine tender in palpation) 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 daily Possible anxiety related ot uncontrol pain Has ordered pain medicine for better pain control, Will not increase medication for now of lisinopril because do not want to decrease blood pressure too low Because have several episodes of systolic blood pressure more than 200, has ordered labs to rule out pheochromocytoma , renal artery stenosis, Conn syndrome , [place] syndrome etc. Fecal impaction/Constipation upon admission , resolved s/p manual disimpaction x 2 in ER with minimal improvement. Will change stool softener such Colace 100mg po BID as needed, Dulcolax 10mg [place] daily as needed, Magnesium Citrate 75mL po BID as needed, Miralax daily PRN Possible UTI start Rocephin, continue Mental status changes upon admission , improved and resolving may be related to accelerated hypertension he was up to 225/140 upon admission resolved and UTI head CT was checked was unremarkable Atrial fibrillation - rate controlled. Was on Coumadin anticoagulatin, INR is subtherapeutic, continue Coumadin lower dose 2 mg p.o. daily additional 1 mg p.o. daily Hypokalemia potassium 2.8 upon admission, today's 3.4, replaced Acute inferior endplate compression fracture at T12. This demonstrates minimal loss of height. Old compression deformities at L2 and L3. With medical condition of osteoporosis checked vitamin D level, which is normal, continue supplementation of calcium and vitamin D Pain control by local lidocaine patch Discussed with patient's daughter in detail about patient condition and care plan, PT OT evaluation, alf or rehab if needed, patient is full code, possible need rehab before discharge to home Continued [facility] stay due to: multiple IV medications needed Discharge planning: home, rehab hospital, uncertain
[2018-02-28 17:58] LABS: CALCIUM 8.3 mg/dl (8.5-10.1); CREATININE 0.6 mg/dl (0.60-1.20); PHOSPHORUS 3.1 mg/dl (2.5-4.9); POTASSIUM 3.8 mmol/L (3.5-5.1)
[2018-03-01] VITALS (9 sets, daily range): BP systolic 109–199; BP diastolic 69–84; PULSE 68–103; TEMP 36.6–37.3; O2SAT 94–100
[2018-03-01 05:56] LABS: INR 1.2 (0.9-1.1)
[2018-03-01] MEDS: HydrALAZINE HCL 20 MG/ML VIAL IV. PRN (07:16)
[2018-03-01] MEDS: GABAPENTIN 100 MG CAP PO PRN (10:23)
[2018-03-01] MEDS: DILTIAZEM HCL 180 MG CAPCR PO SCH (10:23)
[2018-03-01] MEDS: LEVOTHYROXINE 125 MCG TAB PO SCH (10:23)
[2018-03-01] MEDS: DOCUSATE SODIUM 100 MG CAP PO SCH ×2 (10:23→21:40)
[2018-03-01] MEDS: CHOLECALCIFEROL 1000 INTER.UNIT TAB PO SCH (10:23)
[2018-03-01] MEDS: CALCIUM 600MG + VIT D 400 IU TAB PO SCH (10:23)
[2018-03-01] MEDS: SIMVASTATIN 10 MG TAB PO SCH (10:23)
--- NOTE | 2018-03-01 10:23 | DIAGNOSTIC IMAGING REPORT ---
DUPLEX RENAL ARTERY CLINICAL HISTORY: Difficult control hypertension COMPARISON STUDY: Abdomen and pelvis CT 02/24/2018. FINDINGS: The right kidney measures 10 cm and the left kidney measures 10.9 cm. There is a 1.9 cm lower pole cyst within the right kidney. No elevated velocities to suggest renal artery stenosis. Of note, the proximal right renal artery was obscured by overlying bowel gas. The renal veins are patent. Peak systolic velocity within the right renal artery was 153 cm/s and the left renal artery was 111 cm/s. No hydronephrosis. Normal resistive indices of the renal arcuate arteries. IMPRESSION: No evidence for renal artery stenosis. Electronically signed by: Rafael Cool M.D. 03/01/2018 10:22 AM Dictated Date/Time: 03/01/2018 10:20 AM
[2018-03-01] MEDS: LISINOPRIL 10 MG TAB PO SCH (10:24)
[2018-03-01] MEDS: PANTOprazole INJ 40 MG in SYRINGE 0 ML IV SCH (10:24)
--- NOTE | 2018-03-01 12:55 | Progress Note ---
Subjective Date of Service: Mar 01, 2018. Subjective Pt evaluation today including: conversation w/ patient, conversation w/ family , physical exam, chart review, lab review, review of studies, review of inpatient medication list Patient is interested, comfortable, report lower back pain when asking, report a mild nausea however she reported hungry and want to eat more food, she has been eating well for 2 days, no diarrhea, Blood pressure still high however is better controlled, mild confused she was talking about her daughter has never come to see her when she is in the hospital, actually daughter has been here every day Problem List Medical Problems: (1) Constipation Status: Acute Review of Systems Constitutional: + weakness, + fatigue, No fever, No chills, No sweats, No weight loss, No problem reported Eyes: No worsening of vision, No eye pain, No redness, No discharge, No diplopia ENT: No hearing loss, No unusual epistaxis, No nasal symptoms, No sore throat, No tinnitus, No dental problems, No trouble swallowing Respiratory: No cough, No sputum, No wheezing, No shortness of breath, No dyspnea on exertion, No dyspnea at rest, No hemoptysis Cardiac: No chest pain, No orthopnea, No PND, No edema, No claudication, No palpitations Abdomen: No pain, No nausea, No vomiting, No diarrhea, No constipation Musculoskeletal: + joint pain, No muscle pain, No swelling, No calf pain Female : No dysuria, No urinary frequency, No hematuria, No incontinence, No abnormal vaginal bleeding, No vaginal discharge Neurologic: No memory loss, No paralysis, No weakness, No numbness/tingling, No vertigo, No balance problems Psychiatric: No depression symptoms, No anhedonism, No anxiety, No insomnia, No substance abuse Heme: No abnormal bleeding/bruising, No clotting problems, No swollen lymph nodes, No night sweats Endo: No fatigue, No excessive thirst, No excessive urination Skin: No rash, No itch, No new/changing skin lesions, No color change, No bleeding Objective Vital Signs Date Time Temp Pulse Resp B/P (MAP) Pulse Ox O2 Delivery O2 Flow Rate FiO2 03/01/18 08:57 103 176/73 (107) 03/01/18 08:00 Room Air 03/01/18 07:36 37.3 77 20 199/74 (115) 95 03/01/18 05:21 36.9 80 20 170/77 (108) 95 Room Air 03/01/18 00:00 Room Air 03/01/18 00:00 36.6 77 20 148/84 (105) 95 Room Air 02/28/18 19:42 36.7 79 16 159/76 (103) 93 Room Air 02/28/18 15:45 37.0 80 18 149/70 (96) 93 Room Air Physical Exam General Appearance: WD/WN, no apparent distress, + thin Eyes: normal inspection, PERRL, EOMI, sclerae normal ENT: normal ENT inspection, hearing grossly normal, pharynx normal Neck: supple, no adenopathy, thyroid normal, no JVD, no carotid bruits, trachea midline Respiratory/Chest: chest non-tender, normal breath sounds, no respiratory distress, no accessory muscle use, + decreased breath sounds Cardiovascular: regular rate, rhythm, no edema, no gallop, no JVD, no murmur Abdomen: normal bowel sounds, non tender, soft, no organomegaly, no pulsatile mass Extremities: normal range of motion, non-tender, normal inspection, no pedal edema, no calf tenderness, normal capillary refill, pelvis stable, + pertinent finding (Lower T-spine tender in palpation) 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, no motor/sensory deficits, alert, normal mood/affect, oriented x 3 Skin: normal color, warm/dry, no rash Lymphatic: no adenopathy Laboratory Results Last 24 Hours Test 02/28/18 17:13 02/28/18 17:19 03/01/18 05:11 03/01/18 05:13 Sodium Level 140 mmol/L Potassium Level 3.8 mmol/L Chloride Level 106 mmol/L Carbon Dioxide Level 27 mmol/L Anion Gap 7.0 mmol/L Blood Urea Nitrogen 16 mg/dl Creatinine 0.60 mg/dl Est Creatinine Clear Calc Drug Dose 66.3 ml/min Estimated GFR () 97.0 Estimated GFR (Non- 83.7 BUN/Creatinine Ratio 25.9 Random Glucose 92 mg/dl Calcium Level 8.3 mg/dl Phosphorus Level 3.1 mg/dl Random Cortisol 13.60 mcg/dl Prothrombin Time 12.8 SECONDS Prothromb Time International Ratio 1.2 Magnesium Level 2.1 mg/dl Assessment and Plan 82yo female admitted on February 24, 2018 because of cramping abdominal pain with fecal impaction and mental status change, later found has accelerated hypertension , and UTI Accelerated hypertension, still high after starting lisinopril 5 mg p.o. daily, increased lisinopril to 10 mg p.o. daily Possible anxiety related or uncontrol pain Has ordered pain medicine for better pain control, Because have several episodes of systolic blood pressure more than 200, has ordered labs to rule out pheochromocytoma , renal artery stenosis, Conn syndrome , [place] syndrome etc. Ultrasound was done there was no renal artery stenosis, cortisol level is normal , renin and Aldactone and fractionated metanephrine were sent , pending for results Fecal impaction/Constipation upon admission , resolved s/p manual disimpaction x 2 in ER with minimal improvement. has changed stool softener such Colace 100mg po BID as needed, Dulcolax 10mg [place] daily as needed, Magnesium Citrate 75mL po BID as needed, Miralax daily PRN Possible UTI start Rocephin on February 27, 2018, changed to Keflex, total day 3 of 7 antibiotic Mental status changes upon admission , comes and goes may be related to multiple factors with accelerated hypertension he was up to 225/140 upon admission , and UTI head CT was checked was unremarkable Atrial fibrillation - rate controlled. Was on Coumadin anticoagulatin, INR is subtherapeutic, continue Coumadin, increase to 3 mg p.o. daily Acute inferior endplate compression fracture at T12. This demonstrates minimal loss of height. Old compression deformities at L2 and L3. With medical condition of osteoporosis checked vitamin D level, which is normal, continue supplementation of calcium and vitamin D Pain control by local lidocaine patch Discussed with patient's daughter, planning to [facility], Full code Continued [facility] stay due to: multiple IV medications needed Discharge planning: home, halfway facility
[2018-03-01] MEDS: ACETAMINOPHEN 500 MG TAB PO PRN ×2 (13:32→21:46)
[2018-03-01] MEDS: CEPHALEXIN MONOHYDRATE 500 MG CAP PO SCH ×2 (13:32→21:40)
[2018-03-01] MEDS: WARFARIN SOD 3 MG TAB PO SCH (16:12)
[2018-03-02] VITALS (7 sets, daily range): BP systolic 136–184; BP diastolic 58–82; PULSE 72–99; TEMP 36.3–37.2; O2SAT 94–97
[2018-03-02] MEDS: LEVOTHYROXINE 125 MCG TAB PO SCH (05:46)
[2018-03-02 05:57] LABS: INR 1.4 (0.9-1.1)
[2018-03-02] MEDS: HydrALAZINE HCL 20 MG/ML VIAL IV. PRN (06:19)
[2018-03-02] MEDS: SIMVASTATIN 10 MG TAB PO SCH (08:13)
[2018-03-02] MEDS: CALCIUM 600MG + VIT D 400 IU TAB PO SCH (08:14)
[2018-03-02] MEDS: CHOLECALCIFEROL 1000 INTER.UNIT TAB PO SCH (08:14)
[2018-03-02] MEDS: DILTIAZEM HCL 180 MG CAPCR PO SCH (08:14)
[2018-03-02] MEDS: DOCUSATE SODIUM 100 MG CAP PO SCH ×2 (08:14→21:05)
[2018-03-02] MEDS: LISINOPRIL 10 MG TAB PO SCH (08:15)
[2018-03-02] MEDS: CEPHALEXIN MONOHYDRATE 500 MG CAP PO SCH ×2 (08:15→21:04)
[2018-03-02] MEDS: GABAPENTIN 100 MG CAP PO PRN (08:15)
[2018-03-02] MEDS: PANTOprazole INJ 40 MG in SYRINGE 0 ML IV SCH (12:01)
--- NOTE | 2018-03-02 13:14 | Progress Note ---
Subjective Date of Service: Mar 02, 2018. 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 Problem List Medical Problems: (1) Constipation Status: Acute Review of Systems Constitutional: + weakness, + fatigue, No fever, No chills Eyes: No see HPI, No worsening of vision, No eye pain, No redness, No discharge , No diplopia, No problem reported ENT: No see HPI, No hearing loss, No unusual epistaxis, No nasal symptoms, No sore throat, No tinnitus, No dental problems, No trouble swallowing, No problem reported Respiratory: No see HPI, No cough, No sputum, No wheezing, No shortness of breath, No dyspnea on exertion, No dyspnea at rest, No hemoptysis, No problem reported Cardiac: No see HPI, No chest pain, No orthopnea, No PND, No edema, No claudication, No palpitations, No problem reported Abdomen: No see HPI, No pain, No nausea, No vomiting, No diarrhea, No constipation, No GI bleeding, No problem reported Musculoskeletal: + joint pain Female : No see HPI, No dysuria, No urinary frequency, No hematuria, No incontinence, No abnormal vaginal bleeding, No vaginal discharge, No problem reported Neurologic: No see HPI, No memory loss, No paralysis, No weakness, No numbness/ tingling, No vertigo, No balance problems, No problem reported Skin: No see HPI, No rash, No itch, No new/changing skin lesions, No color change, No bleeding, No problem reported Objective Vital Signs Date Time Temp Pulse Resp B/P (MAP) Pulse Ox O2 Delivery O2 Flow Rate FiO2 03/02/18 12:03 37.0 80 20 145/73 (97) 95 03/02/18 08:25 36.8 88 20 146/58 (87) 94 03/02/18 08:00 Room Air 03/02/18 06:17 72 184/82 (116) 03/02/18 04:24 36.7 82 20 182/78 (112) 95 Room Air 03/02/18 00:00 Room Air 03/01/18 23:41 37.1 68 20 156/74 (101) 95 Room Air 03/01/18 19:15 36.9 72 18 146/70 (95) 96 03/01/18 16:00 94 Room Air 03/01/18 15:25 36.8 83 22 133/75 (94) 94 Room Air Physical Exam General Appearance: WD/WN, no apparent distress, + pertinent finding ( awakable , confused, looks tired) Eyes: normal inspection, PERRL, EOMI, sclerae normal ENT: normal ENT inspection, hearing grossly normal, pharynx normal Neck: supple, no adenopathy, thyroid normal, no JVD, no carotid bruits, trachea midline Respiratory/Chest: chest non-tender, normal breath sounds, no respiratory distress, no accessory muscle use, + decreased breath sounds Cardiovascular: regular rate, rhythm, no edema, no gallop, no JVD, no murmur Abdomen: normal bowel sounds, non tender, soft, no organomegaly, no pulsatile mass Extremities: normal range of motion, non-tender, normal inspection, no pedal edema, no calf tenderness, normal capillary refill, pelvis stable 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 daily, at the 5 mg lisinopril every afternoon Possible anxiety related or uncontrol pain, seems does not have these factors Has ordered pain medicine for better pain control, Because have several episodes of systolic blood pressure more than 200, has ordered labs to rule out pheochromocytoma , renal artery stenosis, Conn syndrome , [place] syndrome etc. Ultrasound was done there was no renal artery stenosis, cortisol level is normal , renin and Aldactone and fractionated metanephrine were sent , pending for results Fecal impaction/Constipation upon admission , resolved s/p manual disimpaction x 2 in ER with minimal improvement. has changed stool softener such Colace 100mg po BID as needed, Dulcolax 10mg [place] daily as needed, Magnesium Citrate 75mL po BID as needed, Miralax daily PRN Possible UTI start Rocephin on February 27, 2018, changed to Keflex, total day 4 of 7 antibiotic Mental status changes upon admission , comes and goes may be related to multiple factors with accelerated hypertension he was up to 225/140 upon admission , and UTI head CT was checked was unremarkable Atrial fibrillation - rate controlled. Was on Coumadin anticoagulatin, INR is subtherapeutic, continue Coumadin, increase to 3 mg p.o. yesterday continue follow-up INR Acute inferior endplate compression fracture at T12. This demonstrates minimal loss of height. Old compression deformities at L2 and L3. osteoporosis checked vitamin D level, which is normal, continue supplementation of calcium and vitamin D Pain control by local lidocaine patch Discussed with patient's daughter, planning to [facility], Full code Possible ready to discharge to jail tomorrow if blood pressure continue to be controlled Continued [facility] stay due to: home environment unsafe for pt Discharge planning: home, retirement facility
[2018-03-02] MEDS: WARFARIN SOD 3 MG TAB PO SCH (16:54)
[2018-03-02] MEDS ORDERED: LISINOPRIL 5 MG TAB PO SCH (21:00)
[2018-03-03] VITALS (12 sets, daily range): BP systolic 89–187; BP diastolic 51–92; PULSE 77–150; TEMP 36.2–37.5; O2SAT 94–96
[2018-03-03] MEDS: HydrALAZINE HCL 20 MG/ML VIAL IV. PRN (04:14)
[2018-03-03 05:57] LABS: INR 1.4 (0.9-1.1)
[2018-03-03] MEDS: LEVOTHYROXINE 125 MCG TAB PO SCH (06:28)
[2018-03-03] MEDS: ACETAMINOPHEN 500 MG TAB PO PRN ×2 (06:29→15:58)
[2018-03-03] MEDS: DILTIAZEM HCL 180 MG CAPCR PO SCH (07:23)
[2018-03-03] MEDS: LISINOPRIL 10 MG TAB PO SCH (07:25)
[2018-03-03] MEDS: CALCIUM 600MG + VIT D 400 IU TAB PO SCH (08:46)
[2018-03-03] MEDS: CEPHALEXIN MONOHYDRATE 500 MG CAP PO SCH ×2 (08:47→20:56)
[2018-03-03] MEDS: SIMVASTATIN 10 MG TAB PO SCH (08:47)
[2018-03-03] MEDS: CHOLECALCIFEROL 1000 INTER.UNIT TAB PO SCH (08:47)
[2018-03-03] MEDS: DOCUSATE SODIUM 100 MG CAP PO SCH ×2 (08:47→20:55)
[2018-03-03] MEDS ORDERED: PANTOprazole SOD 40 MG TAB PO SCH (09:00)
[2018-03-03] MEDS ORDERED: DILTIAZEM HCL 5 MG/ML 5 ML VIAL IV STA (13:50)
[2018-03-03] MEDS ORDERED: DILTIAZEM BOLUS / DRIP IV STA (13:58)
[2018-03-03] MEDS: DILTIAZEM HCL INJ 125 MG in DEXTROSE 5% 100ML IV PRN (14:22)
--- NOTE | 2018-03-03 14:43 | Progress Note ---
Subjective Date of Service: Mar 03, 2018. Subjective Pt evaluation today including: conversation w/ patient, conversation w/ family (daughter), physical exam, review of inpatient medication list Pain: no pain PO Intake: adequate Voiding: no voiding problems patient was unpleasant this morning, asked me to "just leave me alone" said that we were torturing her while she was here discussed with CM, needed updated PT/OT notes for insurance authorization for [facility] Massey after PT session, HR jumped to 150-170 range even while resting in chair patient asymptomatic, no chest pain, no palpitation, no dyspnea transferred to [facility], gave Diltiazem 10mg IV push and HR down to 100's will continue a drip at 5mg/hr no labs since 02/28, will check a BMP to make sure electrolytes stable Problem List Medical Problems: (1) Constipation Status: Acute Review of Systems Constitutional: + weakness, + fatigue Neurologic: + memory loss Psychiatric: + depression symptoms All Other Systems: Reviewed and Negative Medications Current Inpatient Medications Medications (Trade) Dose Ordered Sig/Elise Route Start Time Stop Time Status Last Admin Dose Admin Polyethylene (Miralax Powder Packet) 17 gm DAILY PRN PO 02/25/18 00:45 03/27/18 00:44 Docusate Sodium (coLACE CAP) 100 mg BID PO 02/25/18 09:00 03/27/18 08:59 03/03/18 08:47 100 MG Bisacodyl (Dulcolax Supp) 10 mg DAILY PRN [place] 02/25/18 00:45 03/27/18 00:44 Magnesium Citrate (Citrate Of Magnesia Soln) 75 ml BID PRN PO 02/25/18 00:45 03/27/18 00:44 Calcium/Vitamin D (Caltrate Plus Tab) 1 tab DAILY PO 02/25/18 09:00 03/27/18 08:59 03/03/18 08:46 1 TAB Cholecalciferol (Vitamin D Tab) 1,000 inter.unit DAILY PO 02/25/18 09:00 03/27/18 08:59 03/03/18 08:47 1,000 INTER.UNIT Diltiazem HCl (Cardizem Cd Cap) 180 mg DAILY PO 02/25/18 09:00 03/27/18 08:59 Future Hold 03/03/18 07:23 180 MG Gabapentin (Neurontin Cap) 100 mg DAILY PRN PO 02/25/18 00:45 03/27/18 00:44 03/02/18 08:15 100 MG Levothyroxine Sodium (Synthroid Tab) 125 mcg DAILYBB PO 02/25/18 06:30 03/27/18 06:29 03/03/18 06:28 125 MCG Simvastatin (Zocor Tab) 10 mg QAM PO 02/25/18 09:00 03/27/18 08:59 03/03/18 08:47 10 MG Warfarin Sodium (Coumadin Tab) 4 mg SuTuThSa@1600 PO 02/25/18 16:00 03/27/18 15:59 Future Hold Miscellaneous (Iv Fluids Completed) 1 ea PRN PRN N/A 02/25/18 04:45 02/25/19 04:44 Acetaminophen (Tylenol Tab) 1,000 mg Q8 PRN PO 02/27/18 06:00 03/29/18 05:59 03/03/18 06:29 1,000 MG Hydralazine HCl (HydrALAZINE INJ) 20 mg Q6 PRN IV. 02/27/18 07:15 03/29/18 07:14 03/03/18 04:14 20 MG Ondansetron HCl (Zofran Inj) 4 mg Q6H PRN IV 02/27/18 10:45 03/29/18 10:44 Acetaminophen/ Hydrocodone Bitart ([place] 5/325 Tab) 1 tab Q6 PRN PO 02/28/18 16:45 03/14/18 16:44 Acetaminophen/ Hydrocodone Bitart ([place] 5/325 Tab) 2 tab Q6 PRN PO 02/28/18 16:45 03/14/18 16:44 Lisinopril (Zestril Tab) 10 mg QAM PO 03/01/18 09:00 03/30/18 08:59 03/03/18 07:25 10 MG Warfarin Sodium (Coumadin Tab) 3 mg DAILY@1600 PO 03/01/18 16:00 03/29/18 15:59 03/02/18 16:54 3 MG Cephalexin Monohydrate (Keflex Cap) 500 mg BID PO 03/01/18 13:00 03/11/18 12:59 03/03/18 08:47 500 MG Lisinopril (Zestril Tab) 5 mg QPM PO 03/02/18 21:00 04/01/18 20:59 03/02/18 21:05 5 MG Diltiazem HCl 125 mg/Dextrose 125 ml @ 0 mls/hr Q0M PRN IV 03/03/18 14:15 04/02/18 14:14 03/03/18 14:22 5 MLS/HR Objective Vital Signs Date Time Temp Pulse Resp B/P (MAP) Pulse Ox O2 Delivery O2 Flow Rate FiO2 03/03/18 14:25 36.8 150 19 142/80 (100) 95 Room Air 03/03/18 11:43 36.2 86 18 108/51 (70) 95 Room Air 03/03/18 08:45 87 115/75 (88) 03/03/18 08:00 96 Room Air 03/03/18 07:36 36.7 94 20 175/83 (113) 96 Room Air 03/03/18 04:04 37.5 77 18 187/92 (123) 96 Room Air 03/03/18 00:00 Room Air 03/02/18 23:20 37.2 79 20 178/74 (108) 95 Room Air 03/02/18 19:05 37.2 99 20 156/81 (106) 97 03/02/18 15:21 36.3 80 20 136/66 (89) 94 Room Air Physical Exam General Appearance: WD/WN, no apparent distress Eyes: normal inspection, EOMI, sclerae normal ENT: normal ENT inspection, hearing grossly normal, pharynx normal Neck: supple, no adenopathy, no JVD, trachea midline Respiratory/Chest: chest non-tender, lungs clear, normal breath sounds, no respiratory distress, no accessory muscle use Cardiovascular: no edema, no gallop, no JVD, no murmur, + tachycardia, + irregularly irregular Abdomen: normal bowel sounds, non tender, soft, no organomegaly Extremities: normal range of motion, non-tender, normal inspection, no pedal edema, no calf tenderness, pelvis stable Neurologic/Psychiatric: 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 tested, no motor/sensory deficits, alert, oriented x 3, + pertinent finding (angry, agitated with staff) Skin: normal color, warm/dry, no rash Laboratory Results Last 24 Hours Test 03/03/18 05:19 Prothrombin Time 14.8 SECONDS Prothromb Time International Ratio 1.4 Assessment and Plan 82yo female admitted on February 24, 2018 because of cramping abdominal pain with fecal impaction and mental status change, later found has accelerated hypertension , and UTI - Atrial fibrillation with RVR occurred after PT session, no symptoms, HR reached 170s responded well to Diltiazem 10mg IV push and then will run a drip at 5mg/hr hold PO dose in the AM until HR can be evaluated, may increase the PO dose check BMP to make sure electrolytes stable continue Coumadin - HTN: labile, will be quite high in 180-190's in the morning and then down to 115 systolic after Diltiazem and Lisinopril 10mg no CHLOE on US renin, aldactone and metanephrines pending may increase Diltiazem PO dose in the morning depending on HR and BP readings - Fecal impaction/Constipation upon admission , resolved s/p manual disimpaction x 2 in ER with minimal improvement. continue Colace 100mg po BID as needed, Dulcolax 10mg [place] daily as needed, Magnesium Citrate 75mL po BID as needed, Miralax daily PRN - Possible UTI treated with Rocephin on February 27, 2018, changed to Keflex, today is day 5 of 7 - Mental status changes upon admission , comes and goes head CT was checked was unremarkable likely some delirium on dementia, behavior issues - Acute inferior endplate compression fracture at T12. This demonstrates minimal loss of height. Old compression deformities at L2 and L3. osteoporosis checked vitamin D level, which is normal, continue supplementation of calcium and vitamin D Pain control by local lidocaine patch Discussed with patient's daughter, planning to [facility], earliest now would be Saturday due to afib with RVR Full code 35 minutes of critical care time spent with patient, atrial fibrillation with RVR requiring emergent transfer and IV rate control medications Continued [facility] stay due to: home environment unsafe for pt Discharge planning: home, [facility]pc facility
[2018-03-03 15:26] LABS: CALCIUM 8.7 mg/dl (8.5-10.1); CREATININE 0.67 mg/dl (0.60-1.20); POTASSIUM 3.2 mmol/L (3.5-5.1)
[2018-03-03] MEDS ORDERED: POTASSIUM CHLORIDE 20 MEQ TABCR PO ONE (16:00)
[2018-03-03] MEDS: WARFARIN SOD 3 MG TAB PO SCH (16:11)
[2018-03-03] MEDS: POTASSIUM CHLORIDE 20 MEQ TABCR PO SCH (20:55)
[2018-03-04] VITALS (7 sets, daily range): BP systolic 125–166; BP diastolic 66–82; PULSE 76–107; TEMP 36.5–37.4; O2SAT 95–98
[2018-03-04] MEDS: DILTIAZEM HCL INJ 125 MG in DEXTROSE 5% 100ML IV PRN (04:42)
[2018-03-04] MEDS: LEVOTHYROXINE 125 MCG TAB PO SCH (06:01)
[2018-03-04] MEDS: CEPHALEXIN MONOHYDRATE 500 MG CAP PO SCH ×2 (07:54→19:11)
[2018-03-04] MEDS: CALCIUM 600MG + VIT D 400 IU TAB PO SCH (07:55)
[2018-03-04] MEDS: SIMVASTATIN 10 MG TAB PO SCH (07:55)
[2018-03-04] MEDS: CHOLECALCIFEROL 1000 INTER.UNIT TAB PO SCH (07:55)
[2018-03-04] MEDS: DOCUSATE SODIUM 100 MG CAP PO SCH ×2 (07:56→19:12)
[2018-03-04] MEDS: POTASSIUM CHLORIDE 20 MEQ TABCR PO SCH ×2 (07:56→19:12)
--- NOTE | 2018-03-04 10:25 | Progress Note ---
Subjective Date of Service: Mar 04, 2018. Subjective Pt evaluation today including: conversation w/ patient, physical exam, review of inpatient medication list Pain: no pain PO Intake: adequate Voiding: no voiding problems patient feeling fine, sitting up in chair, says she is bored, nothing to do reviewed telemetry, HR in the 90's on Diltiazem drip 7.5mg/hr d/w RN, will give Diltiazem 240mg PO now and stop drip an hour later no labs today Problem List Medical Problems: (1) Constipation Status: Acute Review of Systems Constitutional: + weakness, + fatigue Neurologic: + memory loss All Other Systems: Reviewed and Negative Medications Current Inpatient Medications Medications (Trade) Dose Ordered Sig/Elise Route Start Time Stop Time Status Last Admin Dose Admin Polyethylene (Miralax Powder Packet) 17 gm DAILY PRN PO 02/25/18 00:45 03/27/18 00:44 Docusate Sodium (coLACE CAP) 100 mg BID PO 02/25/18 09:00 03/27/18 08:59 03/04/18 07:56 100 MG Bisacodyl (Dulcolax Supp) 10 mg DAILY PRN [place] 02/25/18 00:45 03/27/18 00:44 Magnesium Citrate (Citrate Of Magnesia Soln) 75 ml BID PRN PO 02/25/18 00:45 03/27/18 00:44 Calcium/Vitamin D (Caltrate Plus Tab) 1 tab DAILY PO 02/25/18 09:00 03/27/18 08:59 03/04/18 07:55 1 TAB Cholecalciferol (Vitamin D Tab) 1,000 inter.unit DAILY PO 02/25/18 09:00 03/27/18 08:59 03/04/18 07:55 1,000 INTER.UNIT Diltiazem HCl (Cardizem Cd Cap) 180 mg DAILY PO 02/25/18 09:00 03/04/18 11:30 Future Hold 03/03/18 07:23 180 MG Gabapentin (Neurontin Cap) 100 mg DAILY PRN PO 02/25/18 00:45 03/27/18 00:44 03/02/18 08:15 100 MG Levothyroxine Sodium (Synthroid Tab) 125 mcg DAILYBB PO 02/25/18 06:30 03/27/18 06:29 03/04/18 06:01 125 MCG Simvastatin (Zocor Tab) 10 mg QAM PO 02/25/18 09:00 03/27/18 08:59 03/04/18 07:55 10 MG Warfarin Sodium (Coumadin Tab) 4 mg SuTuThSa@1600 PO 02/25/18 16:00 03/27/18 15:59 Future Hold Miscellaneous (Iv Fluids Completed) 1 ea PRN PRN N/A 02/25/18 04:45 02/25/19 04:44 Acetaminophen (Tylenol Tab) 1,000 mg Q8 PRN PO 02/27/18 06:00 03/29/18 05:59 03/03/18 15:58 1,000 MG Hydralazine HCl (HydrALAZINE INJ) 20 mg Q6 PRN IV. 02/27/18 07:15 03/29/18 07:14 03/03/18 04:14 20 MG Ondansetron HCl (Zofran Inj) 4 mg Q6H PRN IV 02/27/18 10:45 03/29/18 10:44 Acetaminophen/ Hydrocodone Bitart ([place] 5/325 Tab) 1 tab Q6 PRN PO 02/28/18 16:45 03/14/18 16:44 Acetaminophen/ Hydrocodone Bitart ([place] 5/325 Tab) 2 tab Q6 PRN PO 02/28/18 16:45 03/14/18 16:44 Lisinopril (Zestril Tab) 10 mg QAM PO 03/01/18 09:00 03/30/18 08:59 Future Hold 03/03/18 07:25 10 MG Warfarin Sodium (Coumadin Tab) 3 mg DAILY@1600 PO 03/01/18 16:00 03/29/18 15:59 03/03/18 16:11 3 MG Cephalexin Monohydrate (Keflex Cap) 500 mg BID PO 03/01/18 13:00 03/11/18 12:59 03/04/18 07:54 500 MG Lisinopril (Zestril Tab) 5 mg QPM PO 03/02/18 21:00 04/01/18 20:59 Future Hold 03/02/18 21:05 5 MG Diltiazem HCl 125 mg/Dextrose 125 ml @ 0 mls/hr Q0M PRN IV 03/03/18 14:15 03/04/18 11:30 03/04/18 04:42 7.5 MLS/HR Potassium Chloride (Klor-Con Tab) 20 meq BID PO 03/03/18 21:00 04/02/18 20:59 03/04/18 07:56 20 MEQ Diltiazem HCl (Cardizem Cd Cap) 240 mg NOW PO 03/04/18 10:15 04/03/18 10:14 UNV Diltiazem HCl (Cardizem Cd Cap) 240 mg QAM PO 03/05/18 09:00 04/04/18 08:59 UNV Objective Vital Signs Date Time Temp Pulse Resp B/P (MAP) Pulse Ox O2 Delivery O2 Flow Rate FiO2 03/04/18 08:00 95 Room Air 03/04/18 07:13 37.3 105 18 125/82 (96) 95 Room Air 03/04/18 03:30 36.8 107 18 129/78 (95) 95 Room Air 03/03/18 23:33 36.8 92 18 152/64 (93) 96 Room Air 03/03/18 20:00 Room Air 03/03/18 19:00 36.7 88 18 123/72 (89) 95 Room Air 03/03/18 18:00 36.6 96 18 117/75 (89) 94 Room Air 03/03/18 15:26 36.7 116 16 97/64 (75) 95 Room Air 03/03/18 15:05 36.7 122 18 89/54 (66) 96 Room Air 03/03/18 14:45 36.8 136 19 99/60 (73) 95 Room Air 03/03/18 14:25 95 Room Air 03/03/18 14:25 36.8 150 19 142/80 (100) 95 Room Air 03/03/18 11:43 36.2 86 18 108/51 (70) 95 Room Air Physical Exam General Appearance: WD/WN, no apparent distress Eyes: normal inspection, EOMI, sclerae normal ENT: normal ENT inspection, hearing grossly normal, pharynx normal Neck: supple, no adenopathy, no JVD, trachea midline Respiratory/Chest: chest non-tender, lungs clear, normal breath sounds, no respiratory distress, no accessory muscle use Cardiovascular: no edema, no gallop, no JVD, no murmur, + irregularly irregular Abdomen: normal bowel sounds, non tender, soft, no organomegaly Extremities: normal range of motion, non-tender, normal inspection, no pedal edema, no calf tenderness, pelvis stable 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, no motor/sensory deficits, alert, normal mood/affect, + disoriented Skin: normal color, warm/dry, no rash Laboratory Results Last 24 Hours Test 03/03/18 14:48 Sodium Level 139 mmol/L Potassium Level 3.2 mmol/L Chloride Level 105 mmol/L Carbon Dioxide Level 25 mmol/L Anion Gap 9.0 mmol/L Blood Urea Nitrogen 13 mg/dl Creatinine 0.67 mg/dl Est Creatinine Clear Calc Drug Dose 59.4 ml/min Estimated GFR () 93.6 Estimated GFR (Non- 80.7 BUN/Creatinine Ratio 19.9 Random Glucose 144 mg/dl Calcium Level 8.7 mg/dl Assessment and Plan 82yo female admitted on February 24, 2018 because of cramping abdominal pain with fecal impaction and mental status change, later found has accelerated hypertension , and UTI - Atrial fibrillation with RVR occurred after PT session, no symptoms, HR reached 170s on 03/03 responded well to Diltiazem 10mg IV push and then drip at 7.5mg/hr over night HR in the 90's today give a dose of Diltiazem 240mg PO x 1, stop drip one hour later continue Coumadin, check INR tomorrow - Hypokalemia: 3.2 on 03/03, no labs today, continue 20mEq BID, check in the AM - HTN: labile, will be quite high in 180-190's in the morning and then down to 115 systolic after Diltiazem and Lisinopril 10mg no CHLOE on US renin, aldactone and metanephrines pending BP more stable on the Diltiazem drip, lisinopril on hold will follow pressures on just the Diltiazem 240mg PO, may resume Lisinopril 10mg BID if pressures run high again - Fecal impaction/Constipation upon admission , resolved s/p manual disimpaction x 2 in ER with minimal improvement. continue Colace 100mg po BID as needed, Dulcolax 10mg [place] daily as needed, Magnesium Citrate 75mL po BID as needed, Miralax daily PRN - Possible UTI treated with Rocephin on February 27, 2018, changed to Keflex, today is day 6 of 7 - Mental status changes upon admission , comes and goes head CT was checked was unremarkable likely some delirium on dementia, behavior issues - Acute inferior endplate compression fracture at T12. This demonstrates minimal loss of height. Old compression deformities at L2 and L3. osteoporosis checked vitamin D level, which is normal, continue supplementation of calcium and vitamin D Pain control by local lidocaine patch Discussed with patient's daughter, planning to [facility], earliest now would be Saturday due to afib with RVR Full code Continued [facility] stay due to: home environment unsafe for pt Discharge planning: home, group home facility
[2018-03-04] MEDS ORDERED: DILTIAZEM HCL 240 MG CAPCR PO ONE (10:45)
[2018-03-04] MEDS: WARFARIN SOD 3 MG TAB PO SCH (17:09)
[2018-03-05 03:49] VITALS: BP 178/64; PULSE 90; TEMP 37.1; O2SAT 94
[2018-03-05] MEDS: LEVOTHYROXINE 125 MCG TAB PO SCH (05:50)
[2018-03-05 06:58] LABS: BASO % 0.1 %; BASO ABS # 0.01 K/uL (0-0.2); EOS % 1.3 %; HEMATOCRIT 38.1 % (37-47); HEMOGLOBIN 12.6 g/dL (12.0-16.0); IG# 0.02 K/uL (0.00-0.02); LYMPH % 22.3 %; LYMPH ABS # 1.65 K/uL (1.2-3.4); MEAN CELL VOLUME 94.8 fL (80-100); MEAN CORPUSCULAR HEMOGLOBIN 31.3 pg (25-34); MEAN CORPUSCULAR HGB CONC 33.1 g/dl (32-36); MEAN PLATELET VOLUME 10.3 fL (7.4-10.4); MONO ABS # 0.96 K/uL (0.11-0.59); NEUT ABS # 4.67 K/uL (1.4-6.5); PLATELET COUNT 211 K/uL (130-400); RED CELL DISTRIBUTION WIDTH CV 13.4 % (11.5-14.5); RED CELL DISTRIBUTION WIDTH SD 46.7 fL (36.4-46.3); WHITE BLOOD COUNT 7.41 K/uL (4.8-10.8)
[2018-03-05 07:08] VITALS: BP 183/91; PULSE 86; TEMP 37.2; O2SAT 97
[2018-03-05 07:08] LABS: INR 1.8 (0.9-1.1)
[2018-03-05] MEDS: POTASSIUM CHLORIDE 20 MEQ TABCR PO SCH (07:51)
[2018-03-05] MEDS: DOCUSATE SODIUM 100 MG CAP PO SCH ×2 (07:51→20:48)
[2018-03-05] MEDS: DILTIAZEM HCL 240 MG CAPCR PO SCH (07:51)
[2018-03-05] MEDS: CHOLECALCIFEROL 1000 INTER.UNIT TAB PO SCH (07:51)
[2018-03-05] MEDS: SIMVASTATIN 10 MG TAB PO SCH (07:51)
[2018-03-05] MEDS: CEPHALEXIN MONOHYDRATE 500 MG CAP PO SCH ×2 (07:52→20:47)
[2018-03-05] MEDS: CALCIUM 600MG + VIT D 400 IU TAB PO SCH (07:52)
[2018-03-05 08:08] LABS: CREATININE 0.48 mg/dl (0.60-1.20)
[2018-03-05] MEDS: LISINOPRIL 10 MG TAB PO SCH ×2 (09:20→20:48)
[2018-03-05 10:30] VITALS: BP 183/91; PULSE 86; TEMP 37.2; O2SAT 97
[2018-03-05 10:45] VITALS: BP 187/80; PULSE 87; TEMP 37.5; O2SAT 92
[2018-03-05] MEDS: ACETAMINOPHEN 500 MG TAB PO PRN (11:57)
--- NOTE | 2018-03-05 14:03 | Progress Note ---
Subjective Date of Service: Mar 05, 2018. Subjective Pt evaluation today including: conversation w/ patient, physical exam, lab review, review of inpatient medication list Pain: no pain PO Intake: adequate Voiding: no voiding problems patient doing well HR controlled on higher dose of Diltiazem BP still high, add back Lisinopril 10mg BID, may end up increasing to 20mg BID transfer to medical reviewed labs, K is 4.0 d/w CM, apply for insurance authorization tomorrow Problem List Medical Problems: (1) Constipation Status: Acute Review of Systems Constitutional: + weakness, + fatigue Neurologic: + memory loss All Other Systems: Reviewed and Negative Medications Current Inpatient Medications Medications (Trade) Dose Ordered Sig/Elise Route Start Time Stop Time Status Last Admin Dose Admin Polyethylene (Miralax Powder Packet) 17 gm DAILY PRN PO 02/25/18 00:45 03/27/18 00:44 Docusate Sodium (coLACE CAP) 100 mg BID PO 02/25/18 09:00 03/27/18 08:59 03/05/18 07:51 100 MG Bisacodyl (Dulcolax Supp) 10 mg DAILY PRN [place] 02/25/18 00:45 03/27/18 00:44 Magnesium Citrate (Citrate Of Magnesia Soln) 75 ml BID PRN PO 02/25/18 00:45 03/27/18 00:44 Calcium/Vitamin D (Caltrate Plus Tab) 1 tab DAILY PO 02/25/18 09:00 03/27/18 08:59 03/05/18 07:52 1 TAB Cholecalciferol (Vitamin D Tab) 1,000 inter.unit DAILY PO 02/25/18 09:00 03/27/18 08:59 03/05/18 07:51 1,000 INTER.UNIT Gabapentin (Neurontin Cap) 100 mg DAILY PRN PO 02/25/18 00:45 03/27/18 00:44 03/02/18 08:15 100 MG Levothyroxine Sodium (Synthroid Tab) 125 mcg DAILYBB PO 02/25/18 06:30 03/27/18 06:29 03/05/18 05:50 125 MCG Simvastatin (Zocor Tab) 10 mg QAM PO 02/25/18 09:00 03/27/18 08:59 03/05/18 07:51 10 MG Warfarin Sodium (Coumadin Tab) 4 mg SuTuThSa@1600 PO 02/25/18 16:00 03/27/18 15:59 Future Hold Miscellaneous (Iv Fluids Completed) 1 ea PRN PRN N/A 02/25/18 04:45 02/25/19 04:44 Acetaminophen (Tylenol Tab) 1,000 mg Q8 PRN PO 02/27/18 06:00 03/29/18 05:59 03/05/18 11:57 1,000 MG Hydralazine HCl (HydrALAZINE INJ) 20 mg Q6 PRN IV. 02/27/18 07:15 03/29/18 07:14 03/03/18 04:14 20 MG Ondansetron HCl (Zofran Inj) 4 mg Q6H PRN IV 02/27/18 10:45 03/29/18 10:44 Acetaminophen/ Hydrocodone Bitart ([place] 5/325 Tab) 1 tab Q6 PRN PO 02/28/18 16:45 03/14/18 16:44 Acetaminophen/ Hydrocodone Bitart ([place] 5/325 Tab) 2 tab Q6 PRN PO 02/28/18 16:45 03/14/18 16:44 Warfarin Sodium (Coumadin Tab) 3 mg DAILY@1600 PO 03/01/18 16:00 03/29/18 15:59 03/04/18 17:09 3 MG Cephalexin Monohydrate (Keflex Cap) 500 mg BID PO 03/01/18 13:00 03/11/18 12:59 03/05/18 07:52 500 MG Potassium Chloride (Klor-Con Tab) 20 meq BID PO 03/03/18 21:00 04/02/18 20:59 03/05/18 07:51 20 MEQ Diltiazem HCl (Cardizem Cd Cap) 240 mg QAM PO 03/05/18 09:00 04/04/18 08:59 03/05/18 07:51 240 MG Lisinopril (Zestril Tab) 10 mg BID PO 03/05/18 09:00 04/04/18 08:59 03/05/18 09:20 10 MG Objective Vital Signs Date Time Temp Pulse Resp B/P (MAP) Pulse Ox O2 Delivery O2 Flow Rate FiO2 03/05/18 10:45 37.5 87 18 187/80 (115) 92 Room Air 03/05/18 10:30 37.2 86 18 97 03/05/18 08:00 Room Air 03/05/18 07:08 37.2 86 18 183/91 (121) 97 Room Air 03/05/18 03:49 37.1 90 20 178/64 (102) 94 Room Air 03/04/18 23:59 Room Air 03/04/18 23:35 37.4 76 18 166/78 (107) 96 Room Air 03/04/18 19:15 Room Air 03/04/18 19:12 36.5 81 18 159/73 (101) 97 Room Air 03/04/18 15:00 36.9 76 18 152/79 (103) 98 Room Air 03/04/18 14:46 Room Air Physical Exam General Appearance: WD/WN, no apparent distress Eyes: normal inspection, EOMI, sclerae normal ENT: normal ENT inspection, hearing grossly normal, pharynx normal Neck: supple, no adenopathy, no JVD, trachea midline Respiratory/Chest: chest non-tender, lungs clear, normal breath sounds, no respiratory distress, no accessory muscle use Cardiovascular: no edema, no gallop, no JVD, no murmur, + irregularly irregular Abdomen: normal bowel sounds, non tender, soft, no organomegaly Extremities: normal range of motion, non-tender, normal inspection, no pedal edema, no calf tenderness, pelvis stable 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, no motor/sensory deficits, alert, normal mood/affect, oriented x 3 Skin: normal color, warm/dry, no rash Laboratory Results Last 24 Hours Test 03/05/18 06:32 White Blood Count 7.41 K/uL Red Blood Count 4.02 M/uL Hemoglobin 12.6 g/dL Hematocrit 38.1 % Mean Corpuscular Volume 94.8 fL Mean Corpuscular Hemoglobin 31.3 pg Mean Corpuscular Hemoglobin Concent 33.1 g/dl Platelet Count 211 K/uL Mean Platelet Volume 10.3 fL Neutrophils (%) (Auto) 63.0 % Lymphocytes (%) (Auto) 22.3 % Monocytes (%) (Auto) 13.0 % Eosinophils (%) (Auto) 1.3 % Basophils (%) (Auto) 0.1 % Neutrophils # (Auto) 4.67 K/uL Lymphocytes # (Auto) 1.65 K/uL Monocytes # (Auto) 0.96 K/uL Eosinophils # (Auto) 0.10 K/uL Basophils # (Auto) 0.01 K/uL RDW Standard Deviation 46.7 fL RDW Coefficient of Variation 13.4 % Immature Granulocyte % (Auto) 0.3 % Immature Granulocyte # (Auto) 0.02 K/uL Prothrombin Time 18.9 SECONDS Prothromb Time International Ratio 1.8 Sodium Level 139 mmol/L Potassium Level 4.0 mmol/L Chloride Level 106 mmol/L Carbon Dioxide Level 26 mmol/L Anion Gap 7.0 mmol/L Blood Urea Nitrogen 12 mg/dl Creatinine 0.48 mg/dl Est Creatinine Clear Calc Drug Dose 75.3 ml/min Estimated GFR () 104.4 Estimated GFR (Non- 90.1 BUN/Creatinine Ratio 24.7 Random Glucose 92 mg/dl Calcium Level 8.0 mg/dl Assessment and Plan 82yo female admitted on February 24, 2018 because of cramping abdominal pain with fecal impaction and mental status change, later found has accelerated hypertension , and UTI - Atrial fibrillation with RVR occurred after PT session, no symptoms, HR reached 170s on 03/03 responded well to Diltiazem 10mg IV push and then drip at 7.5mg/hr over night HR controlled now on Diltiazem 240mg PO daily, previously on 180mg continue Coumadin, INR 1.8 today transfer to medical floor - Hypokalemia: 4.0 today, change to potassium to once daily - HTN: labile, will be quite high in 180-190's in the morning and then down to 115 systolic after Diltiazem and Lisinopril 10mg no CHLOE on US metanephrine level high but other levels normal BP up today, add back Lisinopril 10mg BID, may need to increase to 20mg BID - Fecal impaction/Constipation upon admission , resolved s/p manual disimpaction x 2 in ER with minimal improvement. continue Colace 100mg po BID as needed, Dulcolax 10mg [place] daily as needed, Magnesium Citrate 75mL po BID as needed, Miralax daily PRN - Possible UTI treated with Rocephin on February 27, 2018, changed to Keflex, today is day 7 of 7 - Mental status changes upon admission , comes and goes head CT was checked was unremarkable likely some delirium on dementia, behavior issues - Acute inferior endplate compression fracture at T12. This demonstrates minimal loss of height. Old compression deformities at L2 and L3. osteoporosis checked vitamin D level, which is normal, continue supplementation of calcium and vitamin D Pain control by local lidocaine patch Discussed with patient's daughter, planning to [facility], try for tomorrow Full code Continued [facility] stay due to: home environment unsafe for pt Discharge planning: home, [facility] facility
[2018-03-05 15:23] VITALS: BP 175/75; PULSE 72; TEMP 36.3; O2SAT 95
[2018-03-05] MEDS: WARFARIN SOD 3 MG TAB PO SCH (15:49)
[2018-03-05] MEDS: GABAPENTIN 100 MG CAP PO PRN (15:49)
[2018-03-06 00:12] VITALS: BP 169/80; PULSE 85; TEMP 36.8; O2SAT 96
[2018-03-06] MEDS: LEVOTHYROXINE 125 MCG TAB PO SCH (06:37)
[2018-03-06 07:21] VITALS: BP 181/99; PULSE 86; TEMP 36.9; O2SAT 93
[2018-03-06 07:29] LABS: BASO % 0.3 %; BASO ABS # 0.02 K/uL (0-0.2); EOS % 1.2 %; EOS ABS # 0.09 K/uL (0-0.5); IG# 0.02 K/uL (0.00-0.02); LYMPH % 17.6 %; LYMPH ABS # 1.35 K/uL (1.2-3.4); MEAN CORPUSCULAR HEMOGLOBIN 31.3 pg (25-34); MEAN CORPUSCULAR HGB CONC 33.3 g/dl (32-36); MEAN PLATELET VOLUME 10.2 fL (7.4-10.4); MONO % 11.6 %; MONO ABS # 0.89 K/uL (0.11-0.59); NEUT ABS # 5.31 K/uL (1.4-6.5); PLATELET COUNT 206 K/uL (130-400); RED CELL DISTRIBUTION WIDTH CV 13.5 % (11.5-14.5); RED CELL DISTRIBUTION WIDTH SD 46.4 fL (36.4-46.3); WHITE BLOOD COUNT 7.68 K/uL (4.8-10.8)
[2018-03-06] MEDS: DOCUSATE SODIUM 100 MG CAP PO SCH (07:32)
[2018-03-06] MEDS: SIMVASTATIN 10 MG TAB PO SCH (07:32)
[2018-03-06] MEDS: LISINOPRIL 10 MG TAB PO SCH (07:33)
[2018-03-06] MEDS: CHOLECALCIFEROL 1000 INTER.UNIT TAB PO SCH (07:33)
[2018-03-06] MEDS: DILTIAZEM HCL 240 MG CAPCR PO SCH (07:34)
[2018-03-06 07:37] LABS: INR 1.7 (0.9-1.1)
[2018-03-06] MEDS: ACETAMINOPHEN 500 MG TAB PO PRN (07:37)
[2018-03-06 08:01] LABS: CREATININE 0.42 mg/dl (0.60-1.20)
[2018-03-06 08:02] LABS: CALCIUM 8.4 mg/dl (8.5-10.1); POTASSIUM 3.8 mmol/L (3.5-5.1)
[2018-03-06] MEDS ORDERED: POTASSIUM CHLORIDE 20 MEQ TABCR PO SCH (09:00)
[2018-03-06] MEDS ORDERED: LISINOPRIL 10 MG TAB PO ONE (09:00)
[2018-03-06] MEDS: CALCIUM 600MG + VIT D 400 IU TAB PO SCH (09:33)
[2018-03-06] MEDS ORDERED: MRLP17X PO (10:01)
[2018-03-06] MEDS ORDERED: DOCU100C31 PO (10:01)
[2018-03-06] MEDS ORDERED: DLCS PR (10:01)
[2018-03-06] MEDS ORDERED: LISI40TA3 PO (10:01)
[2018-03-06] MEDS ORDERED: DLTCD/240 PO (10:01)
[2018-03-06] MEDS ORDERED: HYDR-5688 PO (10:11)
--- NOTE | 2018-03-06 10:11 | Discharge Instructions ---
Discharge Instructions Date of Service Mar 06, 2018. Admission Reason for Admission: Fecal Impaction Discharge Discharge Diagnosis / Problem: Fecal impaction, UTI, Afib with RVR, Hypertension Discharge Goals Goal(s): Improve function, Improve disease control Activity Recommendations Activity Level: OOB In Chair, Assistance Required Therapies: Physical Therapy, Occupational Therapy Lifting Limitations: none Exercise/Sports Limitations: as tolerated Shower/Bathe: no limitations . Additional Information Patient informed of condition: Yes Advance Directives: Yes DNR: No Level of Care: Skilled Communicable Disease: No Prognosis: Improving Oxygen at (LPM): none Elliott Catheter: No Instructions / Follow-Up Instructions / Follow-Up Medications: - DILTIAZEM: dose increased from 180mg to 240mg for better rate control - LISINOPRIL: 40mg daily, new medication added for better blood pressure control - COLACE, MIRALAX, DULCOLAX: use these as needed for constipation, keep bowel regular - NORCO: use as needed for back pain related to compression fractures - Atrial fibrillation with RVR occurred after PT session, no symptoms, HR reached 170s on 03/03 responded well to Diltiazem 10mg IV push and then drip at 7.5mg/hr over night HR controlled now on Diltiazem 240mg PO daily, previously on 180mg continue Coumadin, follow INR at SNF - HTN: resistant at times, improved with Diltiazem up to 240mg added Lisinopril, titrated up to 40mg daily follow potassium level now that she is on Lisinopril, stable here inpatient plasma metanephrines were slightly high but normetanephrine and total metanephrine level normal no renal artery stenosis seen on renal US if BP continues to be an issue could consider nephrology consult no evidence of hypokalemia which argues against hyperaldosterone and [place]' s - Fecal impaction/Constipation upon admission , resolved s/p manual disimpaction x 2 in ER continue Colace 100mg po BID as needed, Dulcolax 10mg VT daily as needed, Miralax daily PRN - Possible UTI treated with Rocephin on February 27, 2018, changed to Keflex, completed 7 days total no urine culture was obtained no dysuria or fevers - Acute compression fracture of T12 pain control with [place], PT/OT, doing well FOLLOW UP - physician at [facility] this week Current Hospital Diet Patient's current hospital diet: AHA Diet (Heart Healthy) Discharge Diet Recommended Diet: AHA Diet (Heart Healthy) Pending Studies Studies pending at discharge: no Physician Orders On Transfer POLST Discussion: Not Applicable Medical Emergencies . Who to Call and When: Medical Emergencies: If at any time you feel your situation is an emergency, please call 911 immediately. . Non-Emergent Contact Non-Emergency issues call your: Primary Care Provider Call Non-Emergent contact if: you have any medication questions . . "Provider Documentation" section prepared by Sonido Hirsch. . Core Measure Problem Core Measures: None [place] Drug Monitoring Program Search Results: no issues identified
[2018-03-06 10:12] VITALS: BP 181/99; PULSE 86; TEMP 36.9; O2SAT 93
--- NOTE | 2018-03-06 12:14 | Discharge Summary ---
Discharge Summary Date of Service Mar 06, 2018. Discharge Summary Admission Date: Feb 26, 2018 at 16:47 Discharge Date: Mar 06, 2018 Discharge Disposition: detention facility Principal Diagnosis: Fecal impaction/constipation Problems/Secondary Diagnoses: Atrial fibrillation with RVR Hypertension Metabolic encephalopathy UTI Dementia Immunizations: Have You Had Influenza Vaccine: Yes History of Tetanus Vaccine?: Yes History of Pneumococcal: Yes History of Hepatitis B Vaccine: No Procedures: Manual disimpaction in the ED x 2 Consultations: none Medication Reconciliation New Medications: Lisinopril (Lisinopril) 40 Mg Tab 40 MG PO DAILY for 30 Days, #30 TABS 3 Refills Bisacodyl (Bisac-Evac) 10 Mg Supp 10 MG VA DAILY PRN for Constipation, #30 SUPP 1 Refill Diltiazem Hcl (Diltiazem Cd) 240 Mg Capcr 240 MG PO QAM, #30 CAP 3 Refills Hydrocodone/Acetaminophen 5MG/325MG ([place] 5MG/325MG) Tab 1 TAB PO Q6 PRN for Pain, #20 TAB 0 Refills PRN PAIN Polyethylene (Miralax) 17 Gm Pow 17 GM PO DAILY PRN for Constipation, #30 DOSE 1 Refill Changed Medications: Docusate Sodium (Docusate Sodium) 100 Mg Cap 100 MG PO BID PRN for Constipation, #60 CAP 1 Refill (Changed from: DAILY; Refills: ) Continued Medications: Acetaminophen (Tylenol Arthritis Ext Rel) 650 Mg Tab 650 MG PO Q8 PRN for Pain, TAB Alendronate Sodium (Alendronate Sodium) 70 Mg Tab 70 MG PO MONTHLY Calcium/Vitamin D (Os-Wilfredo 500 Plus D) Tab 1 TAB PO DAILY, TAB Cholecalciferol (Vitamin D3) 1,000 Unit Tab 1000 INTER.UNIT PO DAILY, TAB Cyanocobalamin (Vitamin B-12 1000 Mcg) 1,000 Mcg Tab 1000 MCG PO DAILY, TAB Gabapentin (Neurontin) 100 Mg Cap 100 MG PO DAILY PRN for Pain, CAP Levothyroxine Sodium (Levothyroxine Sodium) 125 Mcg Tab 125 MCG PO DAILY Simvastatin (Simvastatin) 10 Mg Tab 10 MG PO QAM Warfarin Sod (Jantoven) 2 Mg Tab 2 MG PO 3XWK, TAB TAKE 2 MG EVERY SATURDAY,SATURDAY AND SATURDAY OR OTHERWISE DIRECTED TO TAKE BY ANTICOAGULATION CLINIC/MD Warfarin Sod (Jantoven) 4 Mg Tab 4 MG PO 4XWK, TAB TAKE 4 MG EVERY SATURDAY,SATURDAY,SATURDAY AND SATURDAY OR OTHERWISE DIRECTED TO TAKE BY ANTICOAGULATION CLINIC/MD Discontinued Medications: Diltiazem Hcl Coated Beads (Diltiazem Hcl Er) 180 Mg Cap 180 MG PO DAILY Discharge Exam Patient sitting up in chair at the bedside, very pleasant and cooperative. Calm , understands she is going to [facility] for rehab and then hopes to join her in assisted living apartment. She is eating well. No complaints really. Had a BM yesterday. Review of Systems: Constitutional: No fever, No chills, No sweats, No weight loss, No weakness , No fatigue, No problem reported Eyes: No worsening of vision, No eye pain, No redness, No discharge, No diplopia, No problem reported ENT: No hearing loss, No unusual epistaxis, No nasal symptoms, No sore throat, No tinnitus, No dental problems, No trouble swallowing, No problem reported Respiratory: No cough, No sputum, No wheezing, No shortness of breath, No dyspnea on exertion, No dyspnea at rest, No hemoptysis, No problem reported Cardiovascular: No chest pain, No orthopnea, No PND, No edema, No claudication, No palpitations, No problem reported Abdomen: No pain, No nausea, No vomiting, No diarrhea, No constipation, No GI bleeding, No problem reported Musculoskeletal: No joint pain, No muscle pain, No swelling, No calf pain, No problem reported Genitourinary - Female: No dysuria, No urinary frequency, No urinary urgency , No urinary incontinence, No urinary retention, No hematuria Neurologic: + memory loss, No paralysis, No weakness, No numbness/tingling, No vertigo, No balance problems, No problem reported Psychiatric: No depression symptoms, No anhedonism, No anxiety, No insomnia , No substance abuse, No problem reported Endocrine: No fatigue, No excessive thirst, No excessive urination, No problem reported Hematologic / Lymphatic: No abnormal bleeding/bruising, No clotting problems , No swollen lymph nodes, No night sweats, No problem reported Integumentary: No rash, No itch, No new/changing skin lesions, No color change, No bleeding, No problem reported Physical Exam: General Appearance: WD/WN, no apparent distress Eyes: normal inspection, EOMI, sclerae normal ENT: normal ENT inspection, hearing grossly normal, pharynx normal Neck: supple, no adenopathy, no JVD, trachea midline Respiratory/Chest: chest non-tender, lungs clear, normal breath sounds, no respiratory distress, no accessory muscle use Cardiovascular: no edema, no gallop, no JVD, no murmur, normal peripheral pulses, + irregularly irregular Abdomen / GI: normal bowel sounds, non tender, soft, no organomegaly Extremities: normal inspection, no calf tenderness, normal capillary refill , no pedal edema, normal range of motion, pelvis stable Neurologic/Psychiatric: superintendent greens II-XII nml as tested, no motor/sensory deficits , alert, normal mood/affect, normal reflexes, oriented x 3 Skin: normal color, warm/dry, no rash Hospital Course 82yo female admitted on February 24, 2018 because of cramping abdominal pain with fecal impaction and mental status change, later found has accelerated hypertension , and UTI - Atrial fibrillation with RVR occurred after PT session, no symptoms, HR reached 170s on 03/03 responded well to Diltiazem 10mg IV push and then drip at 7.5mg/hr over night HR controlled now on Diltiazem 240mg PO daily, previously on 180mg continue Coumadin, should monitor INR weekly while at SNF - Hypokalemia: resolved with PO replacement should repeat potassium level next week at SNF since she is on Lisinopril - HTN: difficult to control at times, 180-190's systolic, this is new for her no Renal artery stenosis on US metanephrine level high but other levels normal potassium not markedly low which argues agains hyperaldosteronism and [place] also, patient had a CT abdomen/pelvis and there was no evidence of adrenal lesions BP responded somewhat to Lisinopril, will d/c on 40mg daily if BP continues to be high would require additional medications, consider nephrology referral outpatient - Fecal impaction/Constipation upon admission , resolved s/p manual disimpaction x 2 in ER with minimal improvement. continue Colace 100mg po BID as needed, Dulcolax 10mg VA daily as needed, Magnesium Citrate 75mL po BID as needed, Miralax daily PRN patient had a BM the day prior to discharge - Possible UTI treated with Rocephin on February 27, 2018, changed to Keflex, completed 7 days total treatment, no further treatment required - Mental status changes upon admission , comes and goes, metabolic encephalopathy head CT was checked was unremarkable likely some delirium on dementia, behavior issues - Acute inferior endplate compression fracture at T12. This demonstrates minimal loss of height. Old compression deformities at L2 and L3. osteoporosis checked vitamin D level, which is normal, continue supplementation of calcium and vitamin D Pain control by [place], continue on discharge Discussed with patient's daughter, planning to [facility] will get rehab, hopeful that she will progress to join in assisted living section Full code Total Time Spent: Greater than 30 minutes This includes examination of the patient, discharge planning, medication reconciliation, and communication with other providers. Discharge Instructions Please refer to the electronic Patient Visit Report (Discharge Instructions) for additional information. Follow-Up physician at [facility] Additional Copies To Bryson Herrera
== END 2018-03-06 13:39 | DRG 388 ==
LOC: C.EDB 19:58 → C.MED 02-25 00:48 → ENRESERV 02-25 01:29 → OBSVTOIN 02-26 16:47 → EDBEDREQSVC 03-03 14:02 → ENRESERV 03-03 14:05 → C.2T 03-03 14:29 → C.MS2W 03-05 10:43
PROVIDERS: ADMIT Internal Medicine; ATTEND Internal Medicine
PROC: 0DCP7ZZ Extirpation of Matter from Rectum, Via Natural or Artificial Opening (ICD-10-PCS; principal; 2018-02-24)
DX: K56.41 Fecal impaction (principal); G93.41 Metabolic encephalopathy; I16.1 Hypertensive emergency; N39.0 Urinary tract infection, site not specified; F03.91 Unspecified dementia, unspecified severity, with behavioral disturbance; M48.54XA Collapsed vertebra, not elsewhere classified, thoracic region, initial encounter for fracture; E87.6 Hypokalemia; I11.9 Hypertensive heart disease without heart failure; I48.91 Unspecified atrial fibrillation; E03.9 Hypothyroidism, unspecified; E78.5 Hyperlipidemia, unspecified; Z79.899 Other long term (current) drug therapy; Z79.01 Long term (current) use of anticoagulants; Z87.891 Personal history of nicotine dependence

== ENCOUNTER 2019-08-18 19:44 | Observation (INO) ==
[2019-08-18] MEDS ORDERED: ONDANSETRON INJ 2 MG/ML 2 ML VIAL IV STA (20:25)
[2019-08-18] MEDS ORDERED: SODIUM CHLORIDE 0.9% 1000ML 1,000 ML IV SCH (20:30)
--- NOTE | 2019-08-18 20:42 | XRay Report ---
XR chest 1V portable CLINICAL HISTORY: weakness COMPARISON STUDY: 07/01/2019 FINDINGS: The bones soft tissues and hemidiaphragms are normal. The cardiomediastinal silhouette is n ormal. The lungs are clear. The pulmonary vasculature is normal. IMPRESSION: Negative chest. Severe degenerative change of the shoulders bilaterally. ACT 112: Negative or not required by law. The above report was generated using voice recognition software. It may contain grammatical, syntax or spelling errors. Electronically signed by: Conner Ramirez M.D. 08/18/2019 8:41 PM
[2019-08-18 20:49] LABS: Basophils # (auto) 0.01 K/uL (0-0.2); Basophils % (auto) 0.1 %; Hematocrit (blood only) 40.9 % (37-47); Hemoglobin 13.9 g/dL (12.0-16.0); Immature Granulocytes # (auto) 0.02 K/uL (0.00-0.02); Immature Granulocytes % (auto) 0.1 %; Lymphocytes # (auto) 0.46 K/uL (1.2-3.4); Lymphocytes % (auto) 3.3 %; Mean Platelet Volume 11.4 fL (7.4-10.4); Monocytes # (auto) 0.39 K/uL (0.11-0.59); Monocytes % (auto) 2.8 %; Neutrophils # (auto) 12.89 K/uL (1.4-6.5); Neutrophils % (auto) 93.7 %; Platelet Count 203 K/uL (130-400); RDW Coefficient of Variation 13.9 % (11.5-14.5); RDW Standard Deviation 47.9 fL (36.4-46.3); Red Blood Count 4.35 M/uL (4.2-5.4); White Blood Count 13.77 K/uL (4.8-10.8)
[2019-08-18 20:54] LABS: Prothrombin Time 10.7 Seconds (9.0-12.0)
[2019-08-18 21:06] LABS: Albumin Globulin Ratio 1.1 (0.9-2); Albumin Level 3.7 gm/dl (3.4-5.0); BUN Creatinine Ratio 19.7 (10-20); Bilirubin,Total 0.4 mg/dl (0.2-1); Calcium 9.4 mg/dl (8.5-10.1); Creatinine Clr Calc Pharmacy 51.3 ml/min; Est GFR (African American) 84.2; Est GFR (Non-African American) 72.7; Globulin 3.5 gm/dl (2.5-4.0); Thyroid Stimulating Hormone 1.6 uIu/ml (0.300-4.500); Total Protein 7.2 gm/dl (6.4-8.2); Troponin I 0.06 ng/ml (0-0.045)
[2019-08-18 21:45] LABS: Influenza A virus by PCR Neg for Influ A (Neg); Influenza B virus by PCR Neg for Influ B (Neg)
--- NOTE | 2019-08-19 00:50 | History & Physical Report ---
Date of Service August 19, 2019 Assessment & Plan (1) Non-STEMI (non-ST elevated myocardial infarction): Non-STEMI/atrial fibrillation/hypertension- The patient will be admitted to telemetry for serial cardiac enzymes, serial EKG's, cardiac rhythm monitoring and a 2-D echocardiogram with Dopplers. Continue diltiazem CD CD 240 mg daily, lisinopril 40 mg daily, Xarelto 15 mg daily. Unclear why she is not on aspirin, and will need to verify back to her records. Her troponin was initially 0.06, and subsequent troponin was 0.078. Likely supply demand mismatch type II. Consult cardiology, who is already aware patient in the ED. Present on Admission?: Yes (2) Atrial fibrillation: See above Present on Admission?: Yes (3) Hypertension: See above Present on Admission?: Yes (4) Alzheimer disease: Senile dementia the Alzheimer's type- Continue donepezil. The degree of her dementia significantly affects her HPI and review of systems as noted above Present on Admission?: Yes (5) Urinary incontinence: Continue Myrbetriq Present on Admission?: Yes (6) Hypothyroidism: Continue levothyroxine sodium 100 mcg every morning Present on Admission?: Yes History of Present Illness Chief Complaint: The patient's HPI and review of systems are limited due to her dementia. At the time of my assessment, the patient cannot remember what brought her to the emergency department, and has no symptoms that she is concerned about at this time. Primary Care Provider: Aditya Walsh MD As noted above, dementia severely limits her history of present illness and review of systems Allergies Allergy/AdvReac Type Severity Reaction Status Date / Time ciprofloxacin Allergy Unknown Verified 07/06/19 14:30 Home Medications Home Medications Medication Instructions Recorded Confirmed Type acetaminophen [Tylenol Extra 500 mg PO QID 08/18/19 08/18/19 History Strength] calcium polycarbophil [Fiber-Lax] 1,250 mg PO DAILY 08/18/19 08/18/19 History cholecalciferol (vitamin D3) 1,000 unit PO DAILY 08/18/19 08/18/19 History [Vitamin D3] cyanocobalamin (vitamin B-12) 1,000 mcg PO DAILY 08/18/19 08/18/19 History [Vitamin B-12] diltiazem HCl 240 mg PO DAILY 08/18/19 08/18/19 History donepezil 5 mg PO QPM 08/18/19 08/18/19 History levothyroxine [Synthroid] 100 mcg PO QAM 08/18/19 08/18/19 History lisinopril 40 mg PO DAILY 08/18/19 08/18/19 History mirabegron [Myrbetriq] 25 mg PO DAILY 08/18/19 08/18/19 History polyethylene glycol 3350 [Miralax] 17 g PO DAILY 08/18/19 08/18/19 History rivaroxaban [Xarelto] 15 mg PO QPM 08/18/19 08/18/19 History saliva substitute combo no.9 1 ea PO .[id number] PRN 08/18/19 08/18/19 History [Biotene Dry Mouth Oral Rinse] sennosides [senna] 8.6 mg PO DAILY 08/18/19 08/18/19 History simvastatin [Zocor] 10 mg PO QPM 08/18/19 08/18/19 History solifenacin [Vesicare] 10 mg PO DAILY 08/18/19 08/18/19 History vit C,W-Ih-eqasb-lutein-zeaxan 1 tab PO AMHS 08/18/19 08/18/19 History [PreserVision AREDS-2] Past Med/Surg History Medical History (Updated 08/19/19 @ 01:59 by Tremayne Harmon MD) Alzheimer disease Atrial fibrillation Paroxysmal, dating back to 2013. 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 Urinary incontinence Urinary tract infection Vertebral fracture Acute fracture of T12, old compression fractures of L2 and L3 seen on imaging 02/24/18 Surgical History History of appendectomy History of surgery fracture repair and reconstruction of L arm History of tonsillectomy History of tooth extraction Total knee replacement status B/L Social History Preferred Language: Latvian Communication Ability: Effective Visual Impairment: No Limitations Windows Administrator Required: No Beliefs That Will Affect Care: Alevism Current Living Situation: Personal Care Facility Other Information That Helps Us Care for You: No Feels Safe at Home: Yes Safety Concerns: Feels Safe At This Time Smoking Status: Never smoker Tobacco Type: cigarettes ; Cigarettes Per Day: QUIT 40 YEARS AGO ; Do You Dip or Chew Tobacco: No ; Second Hand Exposure: No ; Tobacco Cessation Education Requested by Patient: No Hx Alcohol Use: No Hx Substance Use: No Review of Systems Review of Systems: Unobtainable due to cognitive status Physical Exam Physical Exam: The patient is awake,, confused and disoriented, well developed and well nourished, normocephalic and atraumatic, lying in bed and in no acute distress. HEENT--PERRL, EOMI, mucous membranes and oropharynx normal. Neck--supple. No JVD. No bruits. Thyroid normal, trachea midline, no adenopathy. Heart--normal S1 and S2. No murmurs, rubs or gallops. Lungs--clear bilaterally, no respiratory distress, no accessory muscle use. Abdomen--normal bowel sounds and soft. Nontender. Nondistended. Extremities--no cyanosis or clubbing. No edema. There are good distal pulses b/l. Dermatologic--normal skin turgor, normal color, no abnormal lymph nodes, no rash. Neurologic--cranial nerves II through XII grossly intact. Rheumatologic--normal range of motion. Psychiatric--normal affect. Results & Data Vital Signs (Past 12 Hours) Vital Signs Temp Pulse Resp BP Pulse Ox 08/19/19 00:00 74 18 111/70 08/18/19 23:30 71 18 131/53 L 97 08/18/19 23:00 74 18 113/59 L 97 08/18/19 22:31 77 18 94/79 L 95 08/18/19 22:01 80 18 106/48 L 94 08/18/19 21:30 83 18 102/59 L 98 08/18/19 21:00 81 18 139/71 98 08/18/19 20:39 97 08/18/19 20:03 97.5 F L 86 18 154/84 H 99 Laboratory Results Laboratory Results WBC 13.77 K/uL (4.8-10.8) H 08/18/19 19:59 RBC 4.35 M/uL (4.2-5.4) 08/18/19 19:59 Hgb 13.9 g/dL (12.0-16.0) 08/18/19 19:59 Hct 40.9 % (37-47) 08/18/19 19:59 MCV 94.0 fL (80-100) 08/18/19 19:59 MCH 32.0 pg (25-34) 08/18/19 19:59 MCHC 34.0 g/dL (32-36) 08/18/19 19:59 RDW Std Deviation 47.9 fL (36.4-46.3) H 08/18/19 19:59 RDW Coeff of Naomi 13.9 % (11.5-14.5) 08/18/19 19:59 Plt Count 203 K/uL (130-400) 08/18/19 19:59 MPV 11.4 fL (7.4-10.4) H 08/18/19 19:59 Immature Gran % (Auto) 0.1 % 08/18/19 19:59 Neut % (Auto) 93.7 % 08/18/19 19:59 Lymph % (Auto) 3.3 % 08/18/19 19:59 Bullitt % (Auto) 2.8 % 08/18/19 19:59 Eos % (Auto) 0.0 % 08/18/19 19:59 Baso % (Auto) 0.1 % 08/18/19 19:59 Immature Gran # (Auto) 0.02 K/uL (0.00-0.02) 08/18/19 19:59 Neut # (Auto) 12.89 K/uL (1.4-6.5) H 08/18/19 19:59 Lymph # (Auto) 0.46 K/uL (1.2-3.4) L 08/18/19 19:59 Bullitt # (Auto) 0.39 K/uL (0.11-0.59) 08/18/19 19:59 Eos # (Auto) 0.00 K/uL (0-0.5) 08/18/19 19:59 Baso # (Auto) 0.01 K/uL (0-0.2) 08/18/19 19:59 PT 10.7 Seconds (9.0-12.0) 08/18/19 19:59 INR 1.0 (0.9-1.1) 08/18/19 19:59 Sodium 138 mmol/L (136-145) 08/18/19 19:59 Potassium mmol/L (3.5-5.1) 08/18/19 19:59 Chloride 101 mmol/L (98-107) 08/18/19 19:59 Carbon Dioxide 30 mmol/L (21-32) 08/18/19 19:59 Anion Gap 7.0 (3-11) 08/18/19 19:59 BUN 15 mg/dl (7-18) 08/18/19 19:59 Creatinine 0.75 mg/dl (0.6-1.2) 08/18/19 19:59 Est Cr Clr Drug Dosing 51.3 ml/min 08/18/19 19:59 Est GFR ( Amer) 84.2 08/18/19 19:59 Est GFR (Non-Af Amer) 72.7 08/18/19 19:59 BUN/Creatinine Ratio 19.7 (10-20) 08/18/19 19:59 Glucose 139 mg/dl (70-99) H 08/18/19 19:59 Calcium 9.4 mg/dl (8.5-10.1) 08/18/19 19:59 Magnesium mg/dl (1.8-2.4) 08/18/19 19:59 Total Bilirubin 0.4 mg/dl (0.2-1) 08/18/19 19:59 AST U/L (15-37) 08/18/19 19:59 ALT 18 U/L (12-78) 08/18/19 19:59 Alkaline Phosphatase 81 U/L (45-117) 08/18/19 19:59 Troponin I 0.078 ng/ml (0-0.045) H* 08/18/19 22:49 Total Protein 7.2 gm/dl (6.4-8.2) 08/18/19 19:59 Albumin 3.7 gm/dl (3.4-5.0) 08/18/19 19:59 Globulin 3.5 gm/dl (2.5-4.0) 08/18/19 19:59 Albumin/Globulin Ratio 1.1 (0.9-2) 08/18/19 19:59 TSH 1.600 uIu/ml (0.300-4.500) 08/18/19 19:59 Influenza Type A (PCR) Neg for Influ A (Neg) 08/18/19 20:59 Influenza Type B (PCR) Neg for Influ B (Neg) 08/18/19 20:59 [phone] Report Patient: PHILIP ELLISON Date: 08/18/19 MR#: [id number]: [address] Acct ID:[id number]: Date: 4City Zip: [place] [address] Age: 83Location: ED Sex: F Room/Bed: Att Phy:Diagnosis: CARDIAC ASSESSMENT Bertha Phy: Aditya Walsh M.D.Service Date: 08/18/19 Fam Phy:Interpreting Phy: Conner Ramirez MD Admit Phy: Ordering Phy: Zia Hernandez M.D. cc: ~ XR chest 1V portable CLINICAL HISTORY: weakness COMPARISON STUDY: 07/01/2019 FINDINGS: The bones soft tissues and hemidiaphragms are normal. The cardiomediastinal silhouette is normal. The lungs are clear. The pulmonary vasculature is normal. IMPRESSION: Negative chest. Severe degenerative change of the shoulders bilaterally. ACT 112: Negative or not required by law. The above report was generated using voice recognition software. It may contain grammatical, syntax or spelling errors. Electronically signed by: Conner Ramirez M.D. 08/18/2019 8:41 PM Dictated: 08/18/192040 Transcribed: 08/18/192040 Code Status & VTE Plan Code Status Full code VTE Prophylaxis Plan VTE Prophylaxis will be ordered: Yes PG Care Time/CCT Total # of Minutes Spent Total Time Spent with Patient: Total time spent is greater than 50% in coordination of care (as documented) at patient's floor/unit and/or counseling patient:
[2019-08-19] MEDS ORDERED: MAGNESIUM HYDROXIDE SUSP 30 ML UDC PO PRN (01:33)
[2019-08-19] MEDS ORDERED: SALIVA SUBSTITUTE COMBO NO 9 PO PRN (01:33)
[2019-08-19] MEDS ORDERED: ALUMINUM/MAGNESIUM SUSP 30 ML UDC PO PRN (01:33)
[2019-08-19] MEDS ORDERED: NITROGLYCERIN SL 0.4 MG/TAB TAB SL PRN (01:33)
[2019-08-19] MEDS ORDERED: ONDANSETRON INJ 2 MG/ML 2 ML VIAL IV PRN (01:33)
[2019-08-19 02:06] LABS: Basophils # (auto) 0.01 K/uL (0-0.2); Basophils % (auto) 0.1 %; Hematocrit (blood only) 41.4 % (37-47); Hemoglobin 13.6 g/dL (12.0-16.0); Immature Granulocytes # (auto) 0.02 K/uL (0.00-0.02); Immature Granulocytes % (auto) 0.2 %; Lymphocytes # (auto) 0.83 K/uL (1.2-3.4); Lymphocytes % (auto) 7.5 %; Mean Corpuscular Hemoglobin 31.7 pg (25-34); Mean Corpuscular Hgb Conc 32.9 g/dL (32-36); Mean Corpuscular Volume 96.5 fL (80-100); Mean Platelet Volume 10.8 fL (7.4-10.4); Monocytes % (auto) 4.5 %; Neutrophils # (auto) 9.67 K/uL (1.4-6.5); Neutrophils % (auto) 87.7 %; Platelet Count 219 K/uL (130-400); RDW Standard Deviation 49.4 fL (36.4-46.3); Red Blood Count 4.29 M/uL (4.2-5.4); White Blood Count 11.03 K/uL (4.8-10.8)
[2019-08-19 02:22] LABS: Partial Thromboplastin Ratio 0.9; Partial Thromboplastin Time 25.2 Seconds (21.0-31.0); Prothrombin Time 10.6 Seconds (9.0-12.0)
[2019-08-19 02:24] LABS: Albumin Level 3.6 gm/dl (3.4-5.0); BUN Creatinine Ratio 19.8 (10-20); Calcium 8.9 mg/dl (8.5-10.1); Creatinine Clr Calc Pharmacy 35.1 ml/min; Est GFR (African American) 64.1; Est GFR (Non-African American) 55.3; Potassium 4.1 mmol/L (3.5-5.1)
[2019-08-19 02:34] LABS: Albumin Globulin Ratio 1.2 (0.9-2); Bilirubin,Total 0.4 mg/dl (0.2-1); Globulin 3.1 gm/dl (2.5-4.0); Total Protein 6.7 gm/dl (6.4-8.2); Troponin I 0.08 ng/ml (0-0.045)
[2019-08-19] MEDS ORDERED: LEVOTHYROXINE SODIUM 100 MCG TABLET PO SCH (06:30)
[2019-08-19] MEDS ORDERED: VESICARE~ORDER AWAITING ACTION SCH (08:00)
[2019-08-19] MEDS ORDERED: MIRABEGRON ER 25 MG TAB PO SCH (09:00)
[2019-08-19] MEDS ORDERED: lisinopriL 40 MG TAB PO SCH (09:00)
[2019-08-19] MEDS ORDERED: CYANOCOBALAMIN 500 MCG TABLET (VITAMIN B-12) PO SCH (09:00)
[2019-08-19] MEDS ORDERED: POLYETHYLENE (MIRALAX) 17 GM PACK PO SCH (09:00)
[2019-08-19] MEDS ORDERED: CHOLECALCIFEROL 1,000 UNITS TAB PO SCH (09:00)
[2019-08-19] MEDS ORDERED: CALCIUM POLYCARBOPHIL 625MG TAB PO SCH (09:00)
[2019-08-19] MEDS ORDERED: CEROVITE ADV FORMULA TAB PO SCH (09:00)
[2019-08-19] MEDS: ACETAMINOPHEN 500 MG TAB PO SCH ×2 (09:35→13:01)
[2019-08-19] MEDS: SENNA 8.6 MG TAB PO SCH ×2 (09:36→09:45)
--- NOTE | 2019-08-19 09:37 | Cardiology Consultation ---
Date of Consultation August 19, 2019 Assessment & Plan (1) Elevated troponin I level: Mrs. Harris is an 83 year old female with a history of Hypertension, Hypercholesterolemia, Coronary Artery Calcifications, Mild Concentric LVH, Paroxysmal Atrial Fibrillation, CVA, Cerebrovascular Disease, Osteoarthritis, Osteoporosis, and Advanced Dementia who was admitted in the public services librarian hours after the EMS was contacted about patient having "flu-like symptoms" including cough and nausea. Upon arrival of EMS -- patient was found lying in bed with an emesis basin on her abdomen, she was hypertensive and tachycardic -- pulse was irregularly irregular at 140 bpm and presumably she was in A-Fib with RVR. She does not recall any chest discomfort or anginal discomfort while she was feeling poorly and she does not recall having any dyspnea either. Her EKG's have not demonstrated any ischemic changes but she does have a mildly elevated Troponin I -- which most likely represents Demand Ischemia secondary to Rapid A-Fib, LVH, Hypertension, and presumed underlying CAD (coronary artery calcifications). Recommend the following: -- Begin Metoprolol Succinate ER 25 mg daily. -- Begin Aspirin 81 mg daily. -- Continue Diltiazem CD 240 mg. -- Continue Lisinopril 40 mg daily. -- Continue Atorvastatin 10 mg daily. -- Continue Xarelto 15 mg daily. No further ischemic evaluation is required. Patient been stable and asymptomatic since being admitted. Patient may be discharged from a [facility], and follow up at regularly scheduled Cardiology visit. Present on Admission?: Yes (2) Demand ischemia: -- As outlined above. Present on Admission?: No (3) Paroxysmal atrial fibrillation with RVR: -- As outlined above. Present on Admission?: No (4) Hypertension: -- Continue usual antihypertensive regimen with the addition of Metoprolol Succinate ER 25 mg daily. Present on Admission?: Yes Supervising Physician Co-Signing Physician Notes Emery Bonilla MD History of Present Illness Requesting Physician: John Matthews MD Attending Physician: Emery Bonilla MD History of Present Illness Mrs. Harris is an 83 year old female with a history of Hypertension, Hypercholesterolemia, Coronary Artery Calcifications, Paroxysmal Atrial Fibrillation, CVA, Cerebrovascular Disease, Osteoarthritis, Osteoporosis, and Advanced Dementia who was admitted in the public services librarian hours after the EMS was contacted about patient having "flu-like symptoms" including cough and nausea. Patient is a very poor historian due to dementia so the HPI is based on the EMS report. Nonetheless, upon arrival of EMS -- patient was found lying in bed with an emesis basin on her abdomen, she was hypertensive and tachycardic -- pulse was irregularly irregular at 140 bpm. She was brought into the ER and her Troponin I was elevated at 0.060 ng/ml and has subsequently increased to 0.080 ng/ml. EKG's since arriving at the ER show NSR with a RBBB and no acute poli nges. I cannot find her EKG that was done in the field by the EMS. Patient currently denies any chest pain, heaviness, tightness, pressure, or discomfort - and she doesn't recall having any of these symptoms yesterday. She denies any shortness of breath, PACHECO, orthopnea, or pnd. Her cough is better today and she denies any nausea. She denies any palpitations or syncope. She denies any diaphoresis. Patient offers no other complaints or concerns. Is anxious to get out of the hospital. She pulled her IV this morning. Allergies Allergy/AdvReac Type Severity Reaction Status Date / Time ciprofloxacin Allergy Unknown Verified 07/06/19 14:30 Home Medications Home Medications Medication Instructions Recorded Confirmed Type acetaminophen [Tylenol Extra 500 mg PO QID 08/18/19 08/18/19 History Strength] calcium polycarbophil [Fiber-Lax] 1,250 mg PO DAILY 08/18/19 08/18/19 History cholecalciferol (vitamin D3) 1,000 unit PO DAILY 08/18/19 08/18/19 History [Vitamin D3] cyanocobalamin (vitamin B-12) 1,000 mcg PO DAILY 08/18/19 08/18/19 History [Vitamin B-12] diltiazem HCl 240 mg PO DAILY 08/18/19 08/18/19 History donepezil 5 mg PO QPM 08/18/19 08/18/19 History levothyroxine [Synthroid] 100 mcg PO QAM 08/18/19 08/18/19 History lisinopril 40 mg PO DAILY 08/18/19 08/18/19 History mirabegron [Myrbetriq] 25 mg PO DAILY 08/18/19 08/18/19 History polyethylene glycol 3350 [Miralax] 17 g PO DAILY 08/18/19 08/18/19 History rivaroxaban [Xarelto] 15 mg PO QPM 08/18/19 08/18/19 History saliva substitute combo no.9 1 ea PO .[id number] PRN 08/18/19 08/18/19 History [Biotene Dry Mouth Oral Rinse] sennosides [senna] 8.6 mg PO DAILY 08/18/19 08/18/19 History simvastatin [Zocor] 10 mg PO QPM 08/18/19 08/18/19 History solifenacin [Vesicare] 10 mg PO DAILY 08/18/19 08/18/19 History vit C,K-Cq-yiurs-lutein-zeaxan 1 tab PO AMHS 08/18/19 08/18/19 History [PreserVision AREDS-2] Patient History Medical History Alzheimer disease Atrial fibrillation Paroxysmal, dating back to 2013. 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 HEENT: Head is atraumatic, normocephalic. EOM's intact. Facies symmetric. No perioral cyanosis. NECK: No JVD. JVP is at the level of the clavicle sitting upright. Carotid upstrokes are + 2 bilaterally. No obvious bruits are noted. CHEST/LUNGS: Clear to auscultation throughout all lung [place]. No wheezes, rales, or crackles. CVS: S1 and S2 are regular at 76 bpm with occasional ectopy. No obvious murmurs, gallops, or rubs. PMI is nondisplaced. No lifts, heaves, or thrills. No abdominal aortic or renal bruits. ABDOMINAL EXAM: Bowel sounds are present. No masses, organomegaly, or tenderness. EXTREMITIES: No clubbing or cyanosis. No edema. Intact radial pulses bilaterally. NEUROLOGIC EXAM: Patient is awake, alert, and interactive. Pleasant and cooperative. She is demented. Speech is clear. TELEMETRY -- Sinus rhythm with occasional PAC's and PVC's. Results & Data Vital Signs (Past 12 Hours) Vital Signs Temp Pulse Pulse Resp BP BP Pulse Ox 08/19/19 04:35 36.8 C 82 18 130/63 95 08/19/19 01:39 72 08/19/19 01:37 36.7 C 20 139/72 20 L 08/19/19 01:00 74 18 129/51 L 08/19/19 00:30 72 18 118/46 L 08/19/19 00:00 74 18 111/70 08/18/19 23:30 71 18 131/53 L 97 08/18/19 23:00 74 18 113/59 L 97 08/18/19 22:31 77 18 94/79 L 95 08/18/19 22:01 80 18 106/48 L 94 08/18/19 21:30 83 18 102/59 L 98 Laboratory Results Laboratory Results - last 24 hr 08/18/19 08/18/19 08/18/19 19:59 19:59 19:59 WBC 13.77 H RBC 4.35 Hgb 13.9 Hct 40.9 MCV 94.0 MCH 32.0 MCHC 34.0 RDW Std Deviation 47.9 H RDW Coeff of Naomi 13.9 Plt Count 203 MPV 11.4 H Immature Gran % (Auto) 0.1 Neut % (Auto) 93.7 Lymph % (Auto) 3.3 [place] % (Auto) 2.8 Eos % (Auto) 0.0 Baso % (Auto) 0.1 Immature Gran # (Auto) 0.02 Neut # (Auto) 12.89 H Lymph # (Auto) 0.46 L [place] # (Auto) 0.39 Eos # (Auto) 0.00 Baso # (Auto) 0.01 PT 10.7 INR 1.0 APTT PTT Ratio Sodium 138 Potassium Chloride 101 Carbon Dioxide 30 Anion Gap 7.0 BUN 15 Creatinine 0.75 Est Cr Clr Drug Dosing 51.3 Est GFR ( Amer) 84.2 Est GFR (Non-Af Amer) 72.7 BUN/Creatinine Ratio 19.7 Glucose 139 H Calcium 9.4 Magnesium Total Bilirubin 0.4 AST ALT 18 Alkaline Phosphatase 81 Troponin I 0.060 H* Total Protein 7.2 Albumin 3.7 Globulin 3.5 Albumin/Globulin Ratio 1.1 TSH 1.600 Nasal Screen MRSA (PCR) Influenza Type A (PCR) Influenza Type B (PCR) 08/18/19 08/18/19 08/19/19 20:59 22:49 01:30 WBC RBC Hgb Hct MCV MCH MCHC RDW Std Deviation RDW Coeff of Naomi Plt Count MPV Immature Gran % (Auto) Neut % (Auto) Lymph % (Auto) [place] % (Auto) Eos % (Auto) Baso % (Auto) Immature Gran # (Auto) Neut # (Auto) Lymph # (Auto) [place] # (Auto) Eos # (Auto) Baso # (Auto) PT INR APTT PTT Ratio Sodium Potassium Chloride Carbon Dioxide Anion Gap BUN Creatinine Est Cr Clr Drug Dosing Est GFR ( Amer) Est GFR (Non-Af Amer) BUN/Creatinine Ratio Glucose Calcium Magnesium Total Bilirubin AST ALT Alkaline Phosphatase Troponin I 0.078 H* Total Protein Albumin Globulin Albumin/Globulin Ratio TSH Nasal Screen MRSA (PCR) Negative Influenza Type A (PCR) Neg for Influ A Influenza Type B (PCR) Neg for Influ B 08/19/19 08/19/19 08/19/19 01:42 01:42 01:42 WBC 11.03 H RBC 4.29 Hgb 13.6 Hct 41.4 MCV 96.5 MCH 31.7 MCHC 32.9 RDW Std Deviation 49.4 H RDW Coeff of Naomi 14.0 Plt Count 219 MPV 10.8 H Immature Gran % (Auto) 0.2 Neut % (Auto) 87.7 Lymph % (Auto) 7.5 [place] % (Auto) 4.5 Eos % (Auto) 0.0 Baso % (Auto) 0.1 Immature Gran # (Auto) 0.02 Neut # (Auto) 9.67 H Lymph # (Auto) 0.83 L [place] # (Auto) 0.50 Eos # (Auto) 0.00 Baso # (Auto) 0.01 PT 10.6 INR 1.0 APTT 25.2 PTT Ratio 0.9 Sodium 137 Potassium 4.1 Chloride 102 Carbon Dioxide 30 Anion Gap 5.0 BUN 19 H Creatinine 0.94 Est Cr Clr Drug Dosing 35.1 Est GFR ( Amer) 64.1 Est GFR (Non-Af Amer) 55.3 BUN/Creatinine Ratio 19.8 Glucose 119 H Calcium 8.9 Magnesium 2.0 Total Bilirubin 0.4 AST 17 ALT 17 Alkaline Phosphatase 74 Troponin I 0.080 H* Total Protein 6.7 Albumin 3.6 Globulin 3.1 Albumin/Globulin Ratio 1.2 TSH Nasal Screen MRSA (PCR) Influenza Type A (PCR) Influenza Type B (PCR) 08/19/19 09:15 WBC RBC Hgb Hct MCV MCH MCHC RDW Std Deviation RDW Coeff of Naomi Plt Count MPV Immature Gran % (Auto) Neut % (Auto) Lymph % (Auto) [place] % (Auto) Eos % (Auto) Baso % (Auto) Immature Gran # (Auto) Neut # (Auto) Lymph # (Auto) [place] # (Auto) Eos # (Auto) Baso # (Auto) PT INR APTT PTT Ratio Sodium Potassium Chloride Carbon Dioxide Anion Gap BUN Creatinine Est Cr Clr Drug Dosing Est GFR ( Amer) Est GFR (Non-Af Amer) BUN/Creatinine Ratio Glucose Calcium Magnesium Total Bilirubin AST ALT Alkaline Phosphatase Troponin I Pending Total Protein Albumin Globulin Albumin/Globulin Ratio TSH Nasal Screen MRSA (PCR) Influenza Type A (PCR) Influenza Type B (PCR) Medications Administered Active Medications Generic Name Dose Route Start Last Admin Trade Name Freq PRN Reason Stop Dose Admin Acetaminophen 500 mg 08/19/19 09:00 08/19/19 09:35 Tylenol PO 09/18/19 08:59 500 mg QID KHALIDA Administration Al Hydrox/Mg Hydrox/Simethicone 15 ml 08/19/19 01:33 Maalox PO 09/18/19 01:32 Q4H PRN Dyspepsia Calcium Polycarbophil 1,250 mg 08/19/19 09:00 08/19/19 09:36 Fibercon PO 09/18/19 08:59 1,250 mg DAILY KHALIDA Administration Cyanocobalamin 1,000 mcg 08/19/19 09:00 08/19/19 09:36 Vitamin B-12 PO 09/18/19 08:59 1,000 mcg DAILY KHALIDA Administration Diltiazem HCl 240 mg 08/19/19 09:00 08/19/19 09:36 Dilacor Xr PO 09/18/19 08:59 240 mg DAILY KHALIDA Administration Donepezil HCl 5 mg 08/19/19 21:00 Aricept PO 09/18/19 20:59 QPM KHALIDA Levothyroxine Sodium 100 mcg 08/19/19 06:30 08/19/19 05:49 Synthroid PO 09/18/19 06:29 100 mcg DAILYBB KHALIDA Administration Lisinopril 40 mg 08/19/19 09:00 08/19/19 09:36 Zestril PO 09/18/19 08:59 40 mg DAILY KHALIDA Administration Magnesium Hydroxide 30 ml 08/19/19 01:33 Milk Of Magnesia PO 09/18/19 01:32 Q12H PRN Constipation Metoprolol Succinate 25 mg 08/19/19 09:45 Toprol Xl PO 09/18/19 09:44 QAM KHALIDA Mirabegron 25 mg 08/19/19 09:00 08/19/19 09:36 Myrbetriq Er PO 09/18/19 08:59 25 mg DAILY KHALIDA Administration Miscellaneous 1 ea 08/19/19 08:00 08/19/19 08:08 Order Awaiting Action N/A 09/18/19 07:59 Not Given QS KHALIDA Multivitamins/Minerals 1 tab 08/19/19 09:00 08/19/19 09:36 Multivitamin W/ Minerals Tab PO 09/18/19 08:59 1 tab AMHS KHALIDA Administration Nitroglycerin 0.4 mg 08/19/19 01:33 Nitrostat SL 09/18/19 01:32 UD PRN Chest Pain Ondansetron HCl 4 mg 08/19/19 01:33 Zofran IV 09/18/19 01:32 Q6H PRN Nausea Polyethylene Glycol 17 gm 08/19/19 09:00 08/19/19 09:36 Miralax Powder Packet PO 09/18/19 08:59 17 gm DAILY KHALIDA Administration Rivaroxaban 15 mg 08/19/19 21:00 Xarelto PO 09/18/19 20:59 QPM KHALIDA Sennosides 8.6 mg 08/19/19 09:00 08/19/19 09:36 Senokot PO 09/18/19 08:59 8.6 mg DAILY KHALIDA Administration Simvastatin 10 mg 08/19/19 21:00 Zocor PO 09/18/19 20:59 QPM KHALIDA Vitamin D 1,000 units 08/19/19 09:00 08/19/19 09:36 Vitamin D3 PO 09/18/19 08:59 1,000 units DAILY KHALIDA Administration PG Care Time/CCT Total # of Minutes Spent Total Time Spent with Patient: Total time spent is greater than 50% in coordination of care (as documented) at patient's floor/unit and/or counseling patient:
[2019-08-19] MEDS ORDERED: METOPROLOL SUCC 25MG EXT REL TAB PO SCH (09:45)
--- NOTE | 2019-08-19 10:11 | Electrocardiogram Report ---
Test Reason : Blood Pressure : / mmHG Vent. Rate : 093 BPM Atrial Rate : 093 BPM P-R Int : 146 ms QRS Dur : 112 ms QT Int : 402 ms P-R-T Axes : 056 -02 -06 degrees QTc Int : 499 ms Sinus rhythm with Premature atrial complexes Right bundle branch block Prolonged QT Abnormal ECG When compared with ECG of 01-JUL-2019 02:28, No significant change Confirmed by Emery Bonilla ([id number]) on 08/19/2019 10:10:52 AM Referred By: REFERRED SELF Confirmed By:Emery Bonilla
[2019-08-19] MEDS ORDERED: ASPIRIN 81 MG ECTAB PO SCH (10:15)
--- NOTE | 2019-08-19 14:19 | Emergency Department Note ---
Entered by Joy Rios acting as a scribe for Zia Hernandez MD History of Present Illness General Chief complaint: Illness Stated complaint: FLU LIKE SX Time Seen by Provider: 08/18/19 20:07 History of Present Illness Provider complaint: flu-like symptoms Onset (ago): hour(s) (16) Pain Consistency: + other (episode) Quality: + other (flu-like symptoms) Associated symptoms: + denies other symptoms (diarrhea), + cough (dry), + nausea/vomiting and + other (chills, not eating or drinking as much as usual, urinating and moving her bowels regularly) The patient is an 83 year old white female w/ PMHx of dementia, Afib, HTN, hyperlipidemia, hypothyroidism, stroke and migraine who presents to the ED w/ CC of an episode of flu-like symptoms beginning 16 hours ago. The patient states that she woke up in the middle of the night last night with a dry cough. The patient notes that she has also had nausea, vomiting and chills. The patient states that she has not been eating or drinking as much as she usually does. The patient notes that she has been urinating and moving her bowels regularly. The patient denies having diarrhea. The patient states that she thinks she got the flu shot this year. Per nursing staff, the patient was sent here from the [facility] for rapid Afib. HPI and ROS limited secondary to dementia. Home Medications Home Medications Medication Instructions Recorded Confirmed Type Biotene Dry Mouth Oral Rinse 1 ea PO .[id number] PRN 08/18/19 08/18/19 History Myrbetriq 25 mg PO DAILY 08/18/19 08/18/19 History PreserVision AREDS-2 1 tab PO AMHS 08/18/19 08/18/19 History Xarelto 15 mg PO QPM 08/18/19 08/18/19 History acetaminophen [Tylenol Extra 500 mg PO QID 08/18/19 08/18/19 History Strength] calcium polycarbophil [Fiber-Lax] 1,250 mg PO DAILY 08/18/19 08/18/19 History cholecalciferol (vitamin D3) 1,000 unit PO DAILY 08/18/19 08/18/19 History [Vitamin D3] cyanocobalamin (vitamin B-12) 1,000 mcg PO DAILY 08/18/19 08/18/19 History [Vitamin B-12] diltiazem HCl 240 mg PO DAILY 08/18/19 08/18/19 History donepezil 5 mg PO QPM 08/18/19 08/18/19 History levothyroxine [Synthroid] 100 mcg PO QAM 08/18/19 08/18/19 History lisinopril 40 mg PO DAILY 08/18/19 08/18/19 History polyethylene glycol 3350 [Miralax] 17 g PO DAILY 08/18/19 08/18/19 History sennosides [senna] 8.6 mg PO DAILY 08/18/19 08/18/19 History simvastatin [Zocor] 10 mg PO QPM 08/18/19 08/18/19 History solifenacin [Vesicare] 10 mg PO DAILY 08/18/19 08/18/19 History aspirin [Ecotrin Low Strength] 81 mg PO QAM #1 tab 08/19/19 Rx metoprolol succinate 25 mg PO QAM #1 tab 08/19/19 Rx Allergies Allergy/AdvReac Type Severity Reaction Status Date / Time ciprofloxacin Allergy Unknown Verified 07/06/19 14:30 Past Med/Surg History Medical History Alzheimer disease Atrial fibrillation Paroxysmal, dating back to 2013. 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 HPI and ROS limited secondary to dementia. Physical Exam Vital Signs Vital Signs - 24 hr 08/18/19 20:03 08/18/19 20:39 08/18/19 21:00 Temperature 36.4 C L Temperature Source Oral Pulse Rate 86 81 Pulse Rate from SpO2 Sensor 86 Respiratory Rate 18 18 Blood Pressure 154/84 H 139/71 Blood Pressure Mean 107 81 Pulse Oximetry 99 97 98 Oxygen Delivery Method Room Air Room Air Sepsis Recent Fever Within 48 Hours No Sepsis New/Unexplained Change in Mental Status No Sepsis Action Taken by Nursing No Action Required 08/18/19 21:30 08/18/19 22:01 08/18/19 22:31 Temperature Temperature Source Pulse Rate 83 80 77 Pulse Rate from SpO2 Sensor 82 77 80 Respiratory Rate 18 18 18 Blood Pressure 102/59 L 106/48 L 94/79 L Blood Pressure Mean 62 75 84 Pulse Oximetry 98 94 95 Oxygen Delivery Method Sepsis Recent Fever Within 48 Hours Sepsis New/Unexplained Change in Mental Status Sepsis Action Taken by Nursing 08/18/19 23:00 08/18/19 23:30 08/19/19 00:00 Temperature Temperature Source Pulse Rate 74 71 74 Pulse Rate from SpO2 Sensor 74 73 Respiratory Rate 18 18 18 Blood Pressure 113/59 L 131/53 L 111/70 Blood Pressure Mean 82 75 81 Pulse Oximetry 97 97 Oxygen Delivery Method Sepsis Recent Fever Within 48 Hours Sepsis New/Unexplained Change in Mental Status Sepsis Action Taken by Nursing 08/19/19 00:30 Temperature Temperature Source Pulse Rate 72 Pulse Rate from SpO2 Sensor Respiratory Rate 18 Blood Pressure 118/46 L Blood Pressure Mean 79 Pulse Oximetry Oxygen Delivery Method Sepsis Recent Fever Within 48 Hours Sepsis New/Unexplained Change in Mental Status Sepsis Action Taken by Nursing GENERAL: Well nourished, non-toxic. EYE EXAM: Normal conjunctiva. PERRL, no anisocoria and EOM's grossly intact w/o pain. OROPHARYNX: Dry mucous membranes. Grossly normal dentition. NECK: Supple, no nuchal rigidity, no adenopathy, non-tender. No signs of meningismus. LUNGS: Clear to auscultation. Normal chest wall mechanics. HEART: NSR, no MRG. ABDOMEN: Abdomen soft, non-tender, normo-active bowel sounds, no masses, no rebound or guarding. BACK: No CVA TTP. SKIN: No rashes and no bruising. UPPER EXTREMITIES: Upper extremities are grossly normal. LOWER EXTREMITIES: No pitting edema. No calf pain. NEURO EXAM: Easily arousable, follows commands. Moves all 4 extremities. Course Course 2018: Past medical records reviewed. The patient was evaluated in room C02B. A complete history and physical exam was performed. I did speak the on-call heel edge inker machine Dr. Brito who agreed upon rechecking a troponin and if rising to continue to observe the patient and be admitted versus if it was downtrending potentially discharging. I did speak with the on-call hospitalist Dr. Corona who agreed to further evaluate and treat the patient. Patient was admitted to the medicine service. Administered Medications Acetaminophen (Tylenol) 500 mg PO QID [facility] Stop: 09/18/19 08:59 Last Admin: 08/19/19 13:01 Dose: 500 mg Documented by: [id number] Admin: 08/19/19 09:35 Dose: 500 mg Documented by: [id number] Aspirin (Ecotrin Ectab) 81 mg PO QAM [facility] Stop: 09/18/19 10:14 Last Admin: 08/19/19 10:45 Dose: 81 mg Documented by: [id number] Calcium Polycarbophil (Fibercon) 1,250 mg PO DAILY [facility] Stop: 09/18/19 08:59 Last Admin: 08/19/19 09:36 Dose: 1,250 mg Documented by: [id number] Cyanocobalamin (Vitamin B-12) 1,000 mcg PO DAILY [facility] Stop: 09/18/19 08:59 Last Admin: 08/19/19 09:36 Dose: 1,000 mcg Documented by: [id number] Diltiazem HCl (Dilacor Xr) 240 mg PO DAILY [facility] Stop: 09/18/19 08:59 Last Admin: 08/19/19 09:36 Dose: 240 mg Documented by: [id number] Levothyroxine Sodium (Synthroid) 100 mcg PO DAILYBB [facility] Stop: 09/18/19 06:29 Last Admin: 08/19/19 05:49 Dose: 100 mcg Documented by: [id number] Lisinopril (Zestril) 40 mg PO DAILY [facility] Stop: 09/18/19 08:59 Last Admin: 08/19/19 09:36 Dose: 40 mg Documented by: [id number] Metoprolol Succinate (Toprol Xl) 25 mg PO QAM [facility] Stop: 09/18/19 09:44 Last Admin: 08/19/19 10:45 Dose: 25 mg Documented by: [id number] Mirabegron (Myrbetriq Er) 25 mg PO DAILY [facility] Stop: 09/18/19 08:59 Last Admin: 08/19/19 09:36 Dose: 25 mg Documented by: [id number] Miscellaneous (Order Awaiting Action) 1 ea N/A QS [facility] Stop: 09/18/19 07:59 Last Admin: 08/19/19 08:08 Dose: Not Given Documented by: [id number] Multivitamins/Minerals (Multivitamin W/ Minerals Tab) 1 tab PO AMHS [facility] Stop: 09/18/19 08:59 Last Admin: 08/19/19 09:36 Dose: 1 tab Documented by: [id number] Polyethylene Glycol (Miralax Powder Packet) 17 gm PO DAILY [facility] Stop: 09/18/19 08:59 Last Admin: 08/19/19 09:36 Dose: 17 gm Documented by: [id number] Sennosides (Senokot) 8.6 mg PO DAILY [facility] Stop: 09/18/19 08:59 Last Admin: 08/19/19 09:45 Dose: Not Given Documented by: [id number] Vitamin D (Vitamin D3) 1,000 units PO DAILY [facility] Stop: 09/18/19 08:59 Last Admin: 08/19/19 09:36 Dose: 1,000 units Documented by: [id number] Discontinued Medications Sodium Chloride (Nss 1000ml) 1,000 mls @ 999 mls/hr IV .Q1H1M [facility] Stop: 08/18/19 21:30 Last Infusion: 08/19/19 01:12 Dose: 0 mls/hr Documented by: [id number] Admin: 08/18/19 21:01 Dose: 999 mls/hr Documented by: [id number] Ondansetron HCl (Zofran) 4 mg IV NOW STA Stop: 08/18/19 20:26 Last Admin: 08/18/19 21:01 Dose: 4 mg Documented by: [id number] Medical Decision Making Differential Diagnosis Differential diagnosis: Etiologies such as metabolic, infection, hypo/hyperglycemia, electrolyte abnormalities, cardiac sources, intracerebral event, toxicologic, neurologic, as well as others were entertained. Medical Records Attestation: I reviewed the patient's medical records. Home Medications Current Medication List: was personally reviewed by me Laboratory Data Attestation: I reviewed the patient's lab results. Result diagrams: 08/19/19 01:42 08/19/19 01:42 Lab Results 08/18/19 08/18/19 08/18/19 Range/Units 19:59 19:59 19:59 WBC 13.77 H (4.8-10.8) K/uL RBC 4.35 (4.2-5.4) M/uL Hgb 13.9 (12.0-16.0) g/dL Hct 40.9 (37-47) % MCV 94.0 (80-100) fL MCH 32.0 (25-34) pg MCHC 34.0 (32-36) g/dL RDW Std Deviation 47.9 H (36.4-46.3) fL RDW Coeff of Naomi 13.9 (11.5-14.5) % Plt Count 203 (130-400) K/uL MPV 11.4 H (7.4-10.4) fL Immature Gran % (Auto) 0.1 % Neut % (Auto) 93.7 % Lymph % (Auto) 3.3 % [place] % (Auto) 2.8 % Eos % (Auto) 0.0 % Baso % (Auto) 0.1 % Immature Gran # (Auto) 0.02 (0.00-0.02) K/uL Neut # (Auto) 12.89 H (1.4-6.5) K/uL Lymph # (Auto) 0.46 L (1.2-3.4) K/uL [place] # (Auto) 0.39 (0.11-0.59) K/uL Eos # (Auto) 0.00 (0-0.5) K/uL Baso # (Auto) 0.01 (0-0.2) K/uL PT 10.7 (9.0-12.0) Seconds INR 1.0 (0.9-1.1) Sodium 138 (136-145) mmol/L Potassium (3.5-5.1) mmol/L Chloride 101 (98-107) mmol/L Carbon Dioxide 30 (21-32) mmol/L Anion Gap 7.0 (3-11) BUN 15 (7-18) mg/dl Creatinine 0.75 (0.6-1.2) mg/dl Est Cr Clr Drug Dosing 51.3 ml/min Est GFR ( Amer) 84.2 Est GFR (Non-Af Amer) 72.7 BUN/Creatinine Ratio 19.7 (10-20) Glucose 139 H (70-99) mg/dl Calcium 9.4 (8.5-10.1) mg/dl Magnesium (1.8-2.4) mg/dl Total Bilirubin 0.4 (0.2-1) mg/dl AST (15-37) U/L ALT 18 (12-78) U/L Alkaline Phosphatase 81 (45-117) U/L Troponin I 0.060 H* (0-0.045) ng/ml Total Protein 7.2 (6.4-8.2) gm/dl Albumin 3.7 (3.4-5.0) gm/dl Globulin 3.5 (2.5-4.0) gm/dl Albumin/Globulin Ratio 1.1 (0.9-2) TSH 1.600 (0.300-4.500) uIu/ml Influenza Type A (PCR) (Neg) Influenza Type B (PCR) (Neg) 08/18/19 08/18/19 Range/Units 20:59 22:49 WBC (4.8-10.8) K/uL RBC (4.2-5.4) M/uL Hgb (12.0-16.0) g/dL Hct (37-47) % MCV (80-100) fL MCH (25-34) pg MCHC (32-36) g/dL RDW Std Deviation (36.4-46.3) fL RDW Coeff of Naomi (11.5-14.5) % Plt Count (130-400) K/uL MPV (7.4-10.4) fL Immature Gran % (Auto) % Neut % (Auto) % Lymph % (Auto) % [place] % (Auto) % Eos % (Auto) % Baso % (Auto) % Immature Gran # (Auto) (0.00-0.02) K/uL Neut # (Auto) (1.4-6.5) K/uL Lymph # (Auto) (1.2-3.4) K/uL [place] # (Auto) (0.11-0.59) K/uL Eos # (Auto) (0-0.5) K/uL Baso # (Auto) (0-0.2) K/uL PT (9.0-12.0) Seconds INR (0.9-1.1) Sodium (136-145) mmol/L Potassium (3.5-5.1) mmol/L Chloride (98-107) mmol/L Carbon Dioxide (21-32) mmol/L Anion Gap (3-11) BUN (7-18) mg/dl Creatinine (0.6-1.2) mg/dl Est Cr Clr Drug Dosing ml/min Est GFR ( Amer) Est GFR (Non-Af Amer) BUN/Creatinine Ratio (10-20) Glucose (70-99) mg/dl Calcium (8.5-10.1) mg/dl Magnesium (1.8-2.4) mg/dl Total Bilirubin (0.2-1) mg/dl AST (15-37) U/L ALT (12-78) U/L Alkaline Phosphatase (45-117) U/L Troponin I 0.078 H* (0-0.045) ng/ml Total Protein (6.4-8.2) gm/dl Albumin (3.4-5.0) gm/dl Globulin (2.5-4.0) gm/dl Albumin/Globulin Ratio (0.9-2) TSH (0.300-4.500) uIu/ml Influenza Type A (PCR) Neg for Influ A (Neg) Influenza Type B (PCR) Neg for Influ B (Neg) Imaging Data Radiologist's Impression: Radiology results as stated below per my review and the radiologist's interpretation: XR chest 1V portable CLINICAL HISTORY: weakness COMPARISON STUDY: 07/01/2019 FINDINGS: The bones soft tissues and hemidiaphragms are normal. The cardiomediastinal silhouette is normal. The lungs are clear. The pulmonary vasculature is normal. IMPRESSION: Negative chest. Severe degenerative change of the shoulders bilaterally. ACT 112: Negative or not required by law. The above report was generated using voice recognition software. It may contain grammatical, syntax or spelling errors. Electronically signed by: Conner Ramirez M.D. 08/18/2019 8:41 PM ECG Data Attestation: I personally reviewed and interpreted this ECG as follows: Indication: + weakness Rate (beats per minute): 93 Rhythm: + sinus rhythm ECG Intervals/blocks: + Prolonged QT ECG [place]: + Left axis deviation ECG ST segments: + T-wave inversions (lead 3 and V2) Comparison ECG Date: from (07/01/2019) Change: the following changes noted (no longer TWI in V3) Blood Pressure Blood Pressure Findings: Low blood pressure Blood Pressure Disposition: further management by hospitalist MDM Narrative The patient is an 83 year old white female w/ PMHx of dementia, Afib, HTN, hyperlipidemia, hypothyroidism, stroke and migraine who presents to the ED w/ CC of an episode of flu-like symptoms beginning 16 hours ago. Patient was seen and evaluated the bedside. Patient was referred from her fpc due to concern of possible flulike illness and/or rapid heart rate. Patient does have a prior history of A. fib. Patient is currently on anticoagulant medication. Patient also does have a history of confusion. Agustina ent did a bladder completed along with an EKG. Patient does appear to follow commands and is currently at baseline especially after speaking with family who did present thereafter. Patient did have a slightly positive troponin and white count. I did discuss case with the on-call heel edge inker machine and after further discussion without any chest pain or true EKG changes we decided we would repeat a troponin and if it was rising would keep the patient for continued observation and monitoring and trending of troponins but if was decreased or undetectable we will consider discharging home. Patient's retreat troponin was elevated. Observation: Patient has PMX of a fib w/ rapid heart rate . Observation began at 2018 and was necessary in order to rule out, monitor, reassess and mitigate the risk of the patient, ensure their relative safety, and potentially avoid an admission. Upon re-evaluation, observation revealed that the patient could not be safely discharged at this time after repeat troponins x 2 and rising. Patient did not have any chest pain and was admitted from observation at 2330. Impression & Plan Elevated troponin, Acute dehydration Discharge Plan Visit Data *Final* Discharge Date/Time: 08/19/19 01:08 Chief Complaint: Illness Stated Complaint: FLU LIKE SX ED Provider: Zia Hernandez Discharge Problem: Elevated troponin, Acute dehydration Patient Disposition: Admitted As Inpatient Discharge Instructions Interventions: ED Discharge Assessment Last Done: 08/19/19 01:08 The scribe's documentation has been prepared under my direction and personally reviewed by me in its entirety. I confirm that the note above accurately reflects all work, treatment, procedures, and medical decision making performed by me.
--- NOTE | 2019-08-19 18:38 | Discharge Summary ---
Date of Service August 19, 2019 Admission HPI Per Admitting Provider As noted above, dementia severely limits her history of present illness and review of systems Principal Diagnosis Presumed episode of afib with RVR Discharge Exam Constitutional WD/WN, vitals as above Eyes EOM intact bilaterally; no conjunctival abnormality ENMT external ear and nose normal, oropharynx normal Neck trachea midline, no thyromegaly normal visual inspection Respiratory normal respiratory effort, lungs clear to auscultation no respiratory distress Cardiovascular RRR, no murmur, no edema Gastrointestinal (Abdomen) Inspection/Auscultation: abdomen normal to inspection; abdomen not distended Musculoskeletal no cyanosis or clubbing, extremities motor strength 5/5 Skin no rashes, warm and dry Neurologic moves all extremities and awake Psychiatric Orientation: alert, oriented to person and cooperative Discharge Data Allergies Allergy/AdvReac Type Severity Reaction Status Date / Time ciprofloxacin Allergy Unknown Verified 07/06/19 14:30 Consultations 08/18/19 23:31 ED Decision to Admit Stat 08/19/19 01:33 Consult Cardiology Routine Consult Case Management - Discharge Planning Routine Hospital Course (1) Atrial fibrillation: From the notes, the patient had a rapid heart rate and some concern for dehydration. Per the EMS notes, she was in afib with RVR. However, here, she has been in sinus rhythm with rates in the 60s. - She was seen by cardiology who recommended starting a low-dose beta-griffin in addition to her calcium channel griffin to help control rates. This is a tough situation as I do not want her to be bradycardic when not in afib. However, she did well with the addition of metoprolol XL 25mg PO daily with a HR in the 60s and a good BP, so I discharged her on this. (2) Non-STEMI (non-ST elevated myocardial infarction): Her troponin was initially 0.06, and subsequent troponin was 0.078. Likely supply demand mismatch type II. - Cardiology recommended low-dose ASA. - Given her age, dementia, and lack of symptoms, no further intervention needed. (3) Hypertension: See above (4) Alzheimer disease: Senile dementia the Alzheimer's type- - Continue donepezil. (5) Urinary incontinence: Continue Myrbetriq (6) Hypothyroidism: Continue levothyroxine sodium 100 mcg every morning Total Time Total Time Spent Total Time Spent (In Minutes): 35 Discharge Plan Discharge Items Patient Disposition: Transfer Long Term Fac Reason For Visit: NSTEMI Discharge Diagnosis: Possible atrial fibrillation? Activity: Resume your previous activity Non-emergency contact: Primary Care Provider Call non-emergency contact if: your pain is not controlled Follow-up/Referrals: Aditya Walsh MD [Primary Care Provider] - Diet: Heart Healthy Addtl Attending Provider Instructions: Ms. Harris was reported sent to the hospital for rapid heart rate and a possible report of chest pain. She does not recall any of these events and denies any kaila st pain. Her troponin was normal and did not rise, indicating no heart attack. Her heart rate was normal the entire hospital stay here. She does have known atrial fib, so it is possible she had a brief episode of afib with RVR that resolved on its own. She was seen by cardiology who recommended a baby aspirin as well as metoprolol to help reduce her heart rate. Pending Studies at Discharge: No Stand-Alone Forms: [facility] Skilled Items Patient informed of condition?: No DNR: No Discharge Level of Care: Skilled Communicable Disease: No Discharge Prognosis: Stable Lines: None Urinary Catheter: No Medications and DC Order Prescriptions: New aspirin [Ecotrin Low Strength] 81 mg Tablet,Delayed Release (Dr/Ec) 81 mg PO QAM Qty: 1 RF: 0 metoprolol succinate 25 mg Tablet Extended Release 24 Hr 25 mg PO QAM Qty: 1 RF: 0 Continued sennosides [senna] 8.6 mg Tablet 8.6 mg PO DAILY RF: 0 donepezil 5 mg tablet 5 mg PO QPM RF: 0 polyethylene glycol 3350 [Miralax] 17 gram Powder In Packet 17 g PO DAILY RF: 0 simvastatin [Zocor] 10 mg tablet 10 mg PO QPM RF: 0 cyanocobalamin (vitamin B-12) [Vitamin B-12] 1,000 mcg Tablet 1,000 mcg PO DAILY RF: 0 acetaminophen [Tylenol Extra Strength] 500 mg Tablet 500 mg PO QID RF: 0 levothyroxine [Synthroid] 100 mcg tablet 100 mcg PO QAM RF: 0 calcium polycarbophil [Fiber-Lax] 625 mg Tablet 1,250 mg PO DAILY RF: 0 lisinopril 40 mg tablet 40 mg PO DAILY RF: 0 diltiazem HCl 240 mg tablet extended release 24 hr 240 mg PO DAILY RF: 0 solifenacin [Vesicare] 10 mg tablet 10 mg PO DAILY RF: 0 cholecalciferol (vitamin D3) [Vitamin D3] 25 mcg (1,000 unit) Tablet 1,000 unit PO DAILY RF: 0 Xarelto 15 mg tablet 15 mg PO QPM RF: 0 Myrbetriq 25 mg tablet extended release 24 hr 25 mg PO DAILY RF: 0 PreserVision AREDS-2 [id number] Capsule 1 tab PO AMHS RF: 0 Biotene Dry Mouth Oral Rinse Mouthwash 1 ea PO .5XSDAY PRN (Reason: Dry Mouth) RF: 0 Discharge Orders: Discharge Order (Routine); Ordered 08/19/19 Ordered By: John Matthews Admission Data Admit Date/Time: 08/19/19 00:48 Attending Provider: John Matthews Admit Provider: Tremayne Harmon Primary Care Provider: Aditya Walsh Other Providers: Patrick Brito ; John Matthews Other Interventions: Discharge Summary Assessment (RN) Last Done: 08/19/19 12:36 DC Date/Time DO NOT enter until pt leaves facility: 08/19/19 15:15
[2019-08-19] MEDS ORDERED: DONEPEZIL HCL 5 MG TAB PO SCH (21:00)
[2019-08-19] MEDS ORDERED: SIMVASTATIN 10 MG TAB PO SCH (21:00)
[2019-08-19] MEDS ORDERED: RIVAROXABAN 15 MG TAB PO SCH (21:00)
== END 2019-08-19 15:15 ==
LOC: ED 19:44 → 2E 19:44 → SUATTDRO 08-19 00:48 → 2E 08-19 01:08